=== PATIENT | female | born 1935 | race African-American/Black ===

== ENCOUNTER 2016-11-14 11:39 | Inpatient (IN) | payer OTHER, BC ==
[2016-11-14 11:53] VITALS: BMI 19.5
[2016-11-14 12:57] LABS: BASOPHIL 0.6 % (0-2.0); MCH 31.2 pg (25.7-33.7); MCHC 32.3 g/dl (32.0-36.0); MEAN CELL VOLUME 96.7 fl (80-96); MEAN PLT VOLUME 10.3 fl (7.5-11.1); NEUTROPHILS 73.1 % (42.8-82.8); PLATELET COUNT 192 K/MM3 (134-434); RDW 13.5 % (11.6-15.6); WHITE BLOOD COUNT 10.1 K/mm3 (4.0-10.0)
[2016-11-14] MEDS ORDERED: methylPREDNISolone NA SUCC 125 MG/2 ML VIAL IVPB ONE (12:58)
--- NOTE | 2016-11-14 12:58 | PDOC ---
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 She is complaint with her oxygen, as she uses it all the time. She notes that after Sarahy, she has been increasingly short of breath with an associated intermittent wet cough. She notes that after she exerts herself (walking), she gets short of breath, making her increase her home O2 to 4L, which provides some relief. She notes that she experiences pleuritic chest pain, which is relatively new since Sarahy. She went to [facility] on 11/09/2016, for evaluation of these symptoms, for which she was prescribed Z-LEANNE and steroids, for which she has completed but did not provided any relief. Patient expresses concern for possible COPD exacerbation. Allergies: Penicillin Past Surgical History: Stent placement. Social History: Former smoker. No ETOH and recreational drug use. Primary Care Physician/French Binding Folder: Dr. Raymond Perez [phone]/ [phone] <Any Park - Last Filed: 11/14/16 14:02> <Layo Queen - Last Filed: 11/14/16 14:07> - General Chief Complaint: Respiratory Stated Complaint: SOB, FLEM IN CHEST (PCP SENT) Time Seen by Provider: 11/14/16 12:00 Past History <Any Park - Last Filed: 11/14/16 14:02> - Past Medical History Anemia: No Asthma: No Cancer: No Cardiac Disorders: Yes (STENTS 05/2005) CVA: No COPD: Yes (O2 DEPENDENT) CHF: Yes Dementia: No Diabetes: Yes (IDDM) GI Disorders: No Disorders: No HTN: Yes Hypercholesterolemia: Yes Liver Disease: No Suicide Attempt (Hx): No Seizures: No Thyroid Disease: Yes (PTL THYROID REMOVED - ) - Surgical History Abdominal Surgery: No Appendectomy: No Cardiac Surgery: Yes (STENTS) Cholecystectomy: No Lung Surgery: No Neurologic Surgery: No Orthopedic Surgery: Yes (BROKEN ANKLE (CAST) NO SX) - Psycho/Social/Smoking Cessation Hx Anxiety: No (DENIES) Suicidal Ideation: No Smoking Status: No Smoking History: Never smoked Have you smoked in the past 12 months: No Number of Cigarettes Smoked Daily: 0 Hx Alcohol Use: No Drug/Substance Use Hx: No Substance Use Type: None Hx Substance Use Treatment: No <Layo Queen - Last Filed: 11/14/16 14:07> - Past Medical History Allergies/Adverse Reactions: Allergies Allergy/AdvReac Type Severity Reaction Status Date / Time Penicillins AdvReac Unknown Verified 11/14/16 11:53 Home Medications: Ambulatory Orders Albuterol 2.5/Ipratropium 0.5 [Duoneb -] 1 neb NEB Q4H 05/05/15 Aspirin [Ecotrin] 81 mg PO DAILY 05/05/15 Cholecalciferol (Vitamin D3) [D3-2000] 2,000 unit PO DAILY 05/05/15 Clopidogrel Bisulfate [Plavix -] 75 mg PO DAILY 05/05/15 Diltiazem HCl [Diltiazem ER] 180 mg PO DAILY 05/05/15 Docusate Sodium [Colace -] 100 mg PO DAILY 05/05/15 Dorzolamide HCl [Trusopt 2% -] 1 drop OD DAILY 05/05/15 Folic Acid - 1 mg PO DAILY 05/05/15 Latanoprost 0.005% Eye Drops [Xalatan 0.005% Eye Drops -] 1 drop OU HS 05/05/15 Metoprolol Succinate [Toprol Xl] 25 mg PO DAILY 05/05/15 Ranolazine [Ranexa] 500 mg PO DAILY 05/05/15 Insulin (Novolog) [Novolog Flexpen -] 0 units SQ ACHS pen 05/11/15 Furosemide [Lasix] 40 mg PO DAILY 11/14/16 Insulin Glargine,Hum.rec.anlog [Lantus (nf)] 6 units SQ HS 11/14/16 Insulin Lispro [Humalog] 6 unit SQ AC 11/14/16 Levothyroxine [Synthroid -] 75 mcg PO DAILY 11/14/16 Prednisone [Deltasone -] 20 mg PO DAILY 11/14/16 Review of Systems - Review of Systems Constitutional: No: Chills, Fever Respiratory: Yes: Cough, Shortness of Breath, Productive cough Cardiac (ROS): Yes: See HPI, Chest Pain, Edema ABD/GI: No: Nausea, Vomiting All Other Systems: Reviewed and Negative <Layo Queen - Last Filed: 11/14/16 14:07> *Physical Exam - Vital Signs Last Vital Signs Temp Pulse Resp BP Pulse Ox 98.3 F 86 24 164/72 96 11/14/16 11:49 11/14/16 12:54 11/14/16 12:54 11/14/16 11:49 11/14/16 12:54 - Physical Exam Comments: 11/14/16 13:00 GENERAL: The patient is awake, alert, and fully oriented, in no acute distress. HEAD: Normal with no signs of trauma. EYES: Pupils equal, round and reactive to light, extraocular movements intact, sclera anicteric, conjunctiva clear with no pallor. ENT: Ears normal, nares patent, oropharynx clear without exudates. Moist mucous membranes. NECK: Normal range of motion, supple without lymphadenopathy, JVD, or masses. LUNGS:+Coarse breath sounds, particularly on the left with deep inspiration. There are also decreased breath sounds at the right base and expiratory wheezes with cough. HEART: Regular rate and rhythm, normal S1 and S2 without murmur or rub. ABDOMEN: Soft/nontender/nondistended. BS wnl. No guarding or rebound. No palpable masses. No hepatosplenomegaly. EXTREMITIES: Normal range of motion. +There is 1-2 pitting edema to the lower extremities, bilaterally. No clubbing or cyanosis. No cords, erythema, or tenderness. NEUROLOGICAL: Cranial nerves II through XII grossly intact. Normal speech. Gait deferred. PSYCH: Normal mood, normal affect. SKIN: Warm, Dry, normal turgor, no rashes or lesions noted. <Any Park - Last Filed: 11/14/16 14:02> - Vital Signs Last Vital Signs Temp Pulse Resp BP Pulse Ox 98.3 F 86 24 164/72 96 11/14/16 11:49 11/14/16 12:54 11/14/16 12:54 11/14/16 11:49 11/14/16 12:54 <Layo Queen - Last Filed: 11/14/16 14:07> Heart Score/ECG Review #1 General ECG Interpretation: Sinus Rhythm (89 at bpm. Septal Q waves. Inverted T waves in the inferior leads and V6. Propbable LVH.) <Any Park - Last Filed: 11/14/16 14:02> ED Treatment Course - LABORATORY CBC & Chemistry Diagram: 11/14/16 12:40 11/14/16 12:40 - ADDITIONAL ORDERS Additional order review: 11/14/16 12:40 RBC 3.45 L MCV 96.7 H MCHC 32.3 RDW 13.5 D MPV 10.3 D Neutrophils % 73.1 D Lymphocytes % 12.4 D Monocytes % 13.9 H Eosinophils % 0.0 D Basophils % 0.6 <Any Park - Last Filed: 11/14/16 14:02> - LABORATORY CBC & Chemistry Diagram: 11/14/16 12:40 11/14/16 12:40 - RADIOLOGY Radiology Studies Ordered: Category Date Time Status CHEST X-RAY PORTABLE* [RAD] Stat Radiology 11/14/16 12:32 Ordered <Layo Queen - Last Filed: 11/14/16 14:07> Medical Decision Making - Medical Decision Making 11/14/16 13:29 Overhead page to patient's PMD and French Binding Folder, Dr. Raymond Perez. 11/14/16 14:40 Second overhead page to Dr. Raymond Perez. 11/14/16 14:03 A call was placed to Dr. Raymond Perez at his mobile phone at [phone]. Case was discussed. Accepts case. Patient will be admitted for further management, <Any Park - Last Filed: 11/14/16 14:02> - Medical Decision Making 11/14/16 14:05 A portion of this note was documented by scribe services under my direction. I have reviewed the details of the note, within reason, and agree with the documentation with the following case summary and management plan written by me. 81-year-old female with history of COPD and CHF presents with persistent and worsening dyspnea for 2-3 weeks. Seen on 11/08 at outside hospital ED and completed course of azithromycin and prednisone without relief. Vitals as noted, normalized O2 sat on her baseline 3 L. Exam as noted 81-year-old female with persistent dyspnea on exertion, COPD exacerbation versus CHF exacerbation. Labs notable for new renal insufficiency with creatinine of 2.7, elevated BNP with otherwise normal troponin Treated with nebulizers, IV steroids Accepted for inpatient med/surge by her primary physician and spraying machine operator Dr. Perez. <Layo Queen - Last Filed: 11/14/16 14:07> *DC/Admit/Observation/Transfer - Attestations Scribe Attestion: 11/14/16 13:00 Documentation prepared by Any Park, acting as medical doctor nuclear medicine for Layo Queen MD. <Any Park - Last Filed: 11/14/16 14:02> - Discharge Dispostion Admit: Yes <Layo Queen - Last Filed: 11/14/16 14:07> Diagnosis at time of Disposition: Acute renal insufficiency COPD (chronic obstructive pulmonary disease) Qualifiers: COPD type: unspecified COPD Qualified Code(s): J44.9 - Chronic obstructive pulmonary disease, unspecified Dyspnea Qualifiers: Dyspnea type: shortness of breath Qualified Code(s): R06.02 - Shortness of breath - Referrals Referrals: Raymond Perez MD [Primary Care Provider] -
[2016-11-14 13:00] LABS: ARTERIAL BLD GAS O2 SATURATION 98.6 % (90-98.9); ARTERIAL BLOOD GAS BASE EXCESS 8.9 meq/l (-2-2); ARTERIAL BLOOD GAS HCO3 35.4 meq/L (22-26); ARTERIAL BLOOD GAS pH 7.37 (7.35-7.45)
[2016-11-14 13:01] LABS: ALLENS TEST POSITIVE; ART PUNCT SITE RIGHT RADIAL; LPM/O2% 4L; PT. ON O2? YES; TYPE OF O2 NASAL
[2016-11-14] MEDS ORDERED: ALBUTEROL SO4 2.5/IPRATROPIUM 0.5 INH SOL 3 ML VIAL.NEB. NEB ONE (13:09)
[2016-11-14 13:16] LABS: ALBUMIN 3.1 g/dl (3.4-5.0); BILIRUBIN,TOTAL 0.5 mg/dL (0.2-1.0); CREATININE 2.7 mg/dL (0.55-1.02)
[2016-11-14 13:17] LABS: INR 0.99 (0.82-1.09); PROTHROMBIN TIME (PATIENT) 10.9 SEC (9.98-11.88)
[2016-11-14] MEDS: ALBUTEROL SO4 2.5/IPRATROPIUM 0.5 INH SOL 3 ML VIAL.NEB. NEB SCH ×3 (13:18→17:13)
[2016-11-14 13:19] LABS: TOT PROT 7.3 g/dl (6.4-8.2); TROPONIN I 0.04 ng/ml (0.00-0.05)
[2016-11-14] MEDS ORDERED: FUROSEMIDE 40 MG/4 ML INJECTABLE VIAL IVPUSH ONE (13:26)
[2016-11-14] MEDS ORDERED: FUROSEMIDE 40 MG/4 ML INJECTABLE VIAL ONE (13:35)
[2016-11-14] MEDS ORDERED: methylPREDNISolone NA SUCC 125 MG/2 ML VIAL ONE (13:35)
--- NOTE | 2016-11-14 14:40 | HP ---
Admitting History and Physical - Primary Care Physician PCP: Raymond Perez - Admission Chief Complaint: shortness of breath History of Present Illness: 81yo female with h/o HTN, DM, hypercholesterolemia, severe pulmonary HTN, CAD, CHF, chronic hypoxic respiratory failure on home O2 who presents with worsening shortness of breath x 3 weeks. She denies any chest pain but c/o chest tightness. She reports a cough that is nonproductive and with some wheezing. Denies any increase in her leg swelling and she sleeps on 2 pillows. She was seen at [facility] on 11/09/16 for similar symptoms, discharged from the ER with steroids and a Z-pack which did not improve her symptoms. No fevers but does feel cold. Reports compliance with her medications at home. Lives with her who has Alzheimer's. No recent travel or sick contacts. 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) - Smoking History Smoking history: Never smoked Have you smoked in the past 12 months: No Aproximately how many cigarettes per day: 0 - Alcohol/Substance Use Hx Alcohol Use: No - Social History History of Recent Travel: No Home Medications - Allergies Allergies/Adverse Reactions: Allergies Allergy/AdvReac Type Severity Reaction Status Date / Time Penicillins AdvReac Unknown Verified 11/14/16 11:53 - Home Medications Home Medications: Ambulatory Orders Albuterol 2.5/Ipratropium 0.5 [Duoneb -] 1 neb NEB Q4H 05/05/15 Aspirin [Ecotrin] 81 mg PO DAILY 05/05/15 Cholecalciferol (Vitamin D3) [D3-2000] 2,000 unit PO DAILY 05/05/15 Clopidogrel Bisulfate [Plavix -] 75 mg PO DAILY 05/05/15 Diltiazem HCl [Diltiazem ER] 180 mg PO DAILY 05/05/15 Docusate Sodium [Colace -] 100 mg PO DAILY 05/05/15 Dorzolamide HCl [Trusopt 2% -] 1 drop OD DAILY 05/05/15 Folic Acid - 1 mg PO DAILY 05/05/15 Latanoprost 0.005% Eye Drops [Xalatan 0.005% Eye Drops -] 1 drop OU HS 05/05/15 Metoprolol Succinate [Toprol Xl] 25 mg PO DAILY 05/05/15 Ranolazine [Ranexa] 500 mg PO DAILY 05/05/15 Insulin (Novolog) [Novolog Flexpen -] 0 units SQ ACHS pen 05/11/15 Furosemide [Lasix] 40 mg PO DAILY 11/14/16 Insulin Glargine,Hum.rec.anlog [Lantus (nf)] 6 units SQ HS 11/14/16 Insulin Lispro [Humalog] 6 unit SQ AC 11/14/16 Levothyroxine [Synthroid -] 75 mcg PO DAILY 11/14/16 Prednisone [Deltasone -] 20 mg PO DAILY 11/14/16 Family Disease History - Family Disease History Other Family History: non-contributory Review of Systems - Review of Systems Constitutional: reports: Weakness. denies: Chills, Fever Eyes: denies: Recent Change in Vision HENT: denies: Nasal Congestion, Throat Pain Neck: denies: Stiffness, Tenderness Cardiovascular: reports: Edema, Shortness of Breath. denies: Chest Pain, Palpitations Respiratory: reports: Cough, Exercise Intolerance, SOB, SOB on Exertion. denies : Hemoptysis, Wheezing Gastrointestinal: denies: Abdominal Pain, Nausea, Vomiting Genitourinary: denies: Dysuria, Hematuria Neurological: denies: Dizziness, Headache Physical Examination Vital Signs: Vital Signs Temperature 98.3 F 11/14/16 11:49 Pulse Rate 90 11/14/16 14:34 Respiratory Rate 24 11/14/16 14:34 Blood Pressure 158/80 11/14/16 14:34 O2 Sat by Pulse Oximetry (%) 100 11/14/16 14:34 Constitutional: Yes: Mild Distress Eyes: Yes: Conjunctiva Clear, EOM Intact HENT: Yes: Atraumatic, Normocephalic Neck: Yes: Supple, Trachea Midline Cardiovascular: Yes: Regular Rate and Rhythm Respiratory: Yes: Rhonchi (basilar) Gastrointestinal: Yes: Normal Bowel Sounds, Soft. No: Tenderness Edema: Yes Labs: CBC, BMP 11/14/16 12:40 11/14/16 12:40 Imaging - Results Chest X-ray: Image Reviewed (hyperinflated, small bibasilar effusions, possible LLL infiltrate vs atelectasis) Problem List - Problems (1) Acute on chronic diastolic (congestive) heart failure Code(s): I50.33 - ACUTE ON CHRONIC DIASTOLIC (CONGESTIVE) HEART FAILURE (2) Pulmonary hypertension Code(s): I27.2 - OTHER SECONDARY PULMONARY HYPERTENSION (3) COPD (chronic obstructive pulmonary disease) Code(s): J44.9 - CHRONIC OBSTRUCTIVE PULMONARY DISEASE, UNSPECIFIED Qualifiers : COPD type: unspecified COPD Qualified Code(s): J44.9 - Chronic obstructive pulmonary disease, unspecified (4) Acute kidney injury Code(s): N17.9 - ACUTE KIDNEY FAILURE, UNSPECIFIED (5) Chronic respiratory failure with hypoxia Code(s): J96.11 - CHRONIC RESPIRATORY FAILURE WITH HYPOXIA (6) CAD (coronary artery disease) Code(s): I25.10 - ATHSCL HEART DISEASE OF [place] CORONARY ARTERY W/O ANG PCTRS (7) Diabetes mellitus, insulin dependent (IDDM), uncontrolled Code(s): E10.65 - TYPE 1 DIABETES MELLITUS WITH HYPERGLYCEMIA (8) HTN (hypertension) Code(s): I10 - ESSENTIAL (PRIMARY) HYPERTENSION Qualifiers: Hypertension type: essential hypertension Qualified Code(s): I10 - Essential (primary) hypertension (9) Hypercholesteremia Code(s): E78.0 - PURE HYPERCHOLESTEROLEMIA * DO NOT USE * (10) Chronic respiratory failure with hypercapnia Code(s): J96.12 - CHRONIC RESPIRATORY FAILURE WITH HYPERCAPNIA Assessment/Plan Acute on Chronic LV Diastolic Heart Failure Pulmonary HTN COPD - ?Exacerbation Chronic Hypoxic and Hypercapneic Respiratory Failure CAD HTN DM Hypercholesterolemia - IV lasix - monitor urine output, creatinine - daily weights, I/Os - echocardiogram - O2 to keep SpO2 >90% - empiric medrol x 48 hrs then reassess need to continue - inhaled bronchodilators - urine lytes, urine creatinine - glucose control while on systemic steroids - cardiology, renal consults - DVT prophylaxis
[2016-11-14] MEDS ORDERED: ACETAMINOPHEN 325 MG TABLET (FP) PO PRN (14:49)
[2016-11-14] MEDS ORDERED: ALBUTEROL SO4 2.5/IPRATROPIUM 0.5 INH SOL 3 ML VIAL.NEB. NEB SCH ×2 (15:00)
[2016-11-14] MEDS: INSULIN SLIDING SCALE (NOVOLOG) 1 VIAL SQ SCH ×2 (18:02→21:52)
[2016-11-14] MEDS: methylPREDNISolone NA SUCC 40 MG/1 ML VIAL IVPB SCH (18:03)
[2016-11-14] MEDS ORDERED: INSULIN (NOVOLOG) ASPART 100 UNITS/ML 10ML VIAL ONE (20:48)
[2016-11-14] MEDS: HEPARIN NA (PORCINE) 5,000 UNITS/ML 1ML VIAL SQ SCH (21:57)
[2016-11-14] MEDS: LATANOPROST 0.005% OPHTH SOLN 2.5ML BOTTLE OU SCH (21:57)
--- NOTE | 2016-11-14 23:53 | EKG ---
Test Reason : Blood Pressure : / mmHG Vent. Rate : 089 BPM Atrial Rate : 089 BPM P-R Int : 156 ms QRS Dur : 080 ms QT Int : 376 ms P-R-T Axes : 075 -03 -23 degrees QTc Int : 457 ms NORMAL SINUS RHYTHM ANTEROSEPTAL INFARCT (CITED ON OR BEFORE 06-MAY-2015) ABNORMAL ECG WHEN COMPARED WITH ECG OF 06-MAY-2015 01:23, QUESTIONABLE CHANGE IN INITIAL FORCES OF SEPTAL LEADS T WAVE INVERSION NOW EVIDENT IN INFERIOR LEADS Confirmed by ALESIA NIX MD ([id number]) on 11/14/2016 11:53:30 PM Referred By: Confirmed By:ALESIA NIX MD
[2016-11-15] MEDS: ALBUTEROL SO4 2.5/IPRATROPIUM 0.5 INH SOL 3 ML VIAL.NEB. NEB SCH ×4 (00:13→19:31)
[2016-11-15] MEDS: methylPREDNISolone NA SUCC 40 MG/1 ML VIAL IVPB SCH ×3 (01:34→18:39)
[2016-11-15] MEDS: INSULIN SLIDING SCALE (NOVOLOG) 1 VIAL SQ SCH ×4 (06:16→21:51)
[2016-11-15] MEDS: LEVOTHYROXINE NA 75 MCG TABLET (FP) PO SCH (06:22)
[2016-11-15 07:27] LABS: BASOPHIL 0.1 % (0-2.0); MCH 31.8 pg (25.7-33.7); MCHC 32.6 g/dl (32.0-36.0); MEAN CELL VOLUME 97.5 fl (80-96); PLATELET COUNT 170 K/MM3 (134-434); RDW 14.2 % (11.6-15.6); WHITE BLOOD COUNT 6.9 K/mm3 (4.0-10.0)
[2016-11-15 09:11] LABS: ALBUMIN 2.7 g/dl (3.4-5.0); BILIRUBIN,TOTAL 0.5 mg/dL (0.2-1.0); CALCIUM 8.6 mg/dL (8.5-10.1); CREATININE 2.7 mg/dL (0.55-1.02); MAGNESIUM 2.5 mg/dL (1.8-2.4); PHOSPHOROUS 4.1 mg/dL (2.5-4.9); THYROID STIMULATING HORMONE 0.7 uIU/ml (0.358-3.74); TOT PROT 6.5 g/dl (6.4-8.2)
[2016-11-15] MEDS ORDERED: PT OWN MED DRAWER 7, Y5N ONE (10:09)
[2016-11-15] MEDS: FUROSEMIDE 40 MG/4 ML INJECTABLE VIAL IVPUSH SCH (10:47)
[2016-11-15] MEDS: DOCUSATE SODIUM 100 MG CAPSULE (FP) PO SCH (10:53)
[2016-11-15] MEDS: FOLIC ACID 1 MG TABLET (FP) PO SCH (10:54)
[2016-11-15] MEDS: RANOLAZINE E.R. 500 MG TABLET (FP) PO SCH (10:54)
[2016-11-15] MEDS: CLOPIDOGREL BISULFATE 75 MG TABLET (FP) PO SCH (10:54)
[2016-11-15] MEDS: ASPIRIN COATED 81 MG TABLET.EC PO SCH (10:54)
[2016-11-15] MEDS: METOPROLOL SUCCINATE 25 MG TAB.SR.24H (FP) PO SCH (10:55)
[2016-11-15] MEDS: HEPARIN NA (PORCINE) 5,000 UNITS/ML 1ML VIAL SQ SCH ×2 (10:55→21:51)
[2016-11-15] MEDS: DORZOLAMIDE 2% HCL OPHTHALMIC SOLUTION 10 ML BOTTLE OD SCH (10:56)
--- NOTE | 2016-11-15 11:06 | PN ---
Progress Note (short form) - Note Progress Note: PULMONARY/MED Breathing about the same. Feels weak and tired. Last Vital Signs Temp Pulse Resp BP Pulse Ox 98.1 F 88 20 148/82 100 11/15/16 05:00 11/15/16 05:00 11/15/16 05:00 11/15/16 05:00 11/14/16 21:00 Gen: NAD at rest Heart: RRR Lung: scattered rhonchi Abd: soft, nontender Ext: distal edema CBC, BMP 11/15/16 06:00 11/15/16 06:00 Active Medications Acetaminophen (Tylenol -) 650 mg PO Q4H PRN PRN Reason: FEVER OR PAIN Albuterol/Ipratropium (Duoneb -) 1 amp NEB QIDR [facility] Last Admin: 11/15/16 07:14 Dose: 1 amp Aspirin (Ecotrin -) 81 mg PO DAILY [facility] Clopidogrel Bisulfate (Plavix -) 75 mg PO DAILY [facility] Diltiazem HCl (Cardizem Cd -) 180 mg PO DAILY [facility] Docusate Sodium (Colace -) 100 mg PO DAILY [facility] Dorzolamide HCl (Trusopt 2%) 1 drop OD DAILY [facility] Folic Acid (Folic Acid -) 1 mg PO DAILY [facility] Furosemide (Lasix Injection -) 60 mg IVPUSH DAILY [facility] Heparin Sodium (Porcine) (Heparin -) 5,000 unit SQ BID [facility] Last Admin: 11/14/16 21:57 Dose: 5,000 unit Insulin Aspart (Novolog Vial Sliding Scale -) 1 vial SQ ACHS [facility] PRN Reason: Protocol Last Admin: 11/15/16 06:16 Dose: Not Given Latanoprost (Xalatan 0.005% Eye Drops -) 1 drop OU HS [facility] Last Admin: 11/14/16 21:57 Dose: 1 drop Levothyroxine Sodium (Synthroid -) 75 mcg PO DAILY@0700 [facility] Last Admin: 11/15/16 06:22 Dose: 75 mcg Methylprednisolone Sodium Succinate (Solu-Medrol -) 40 mg IVPB Q8H-IV [facility] Last Admin: 11/15/16 01:34 Dose: 40 mg Metoprolol Succinate (Toprol Xl -) 25 mg PO DAILY [facility] Ranolazine (Ranexa -) 500 mg PO DAILY [facility] A/P Acute on Chronic LV Diastolic Heart Failure Pulmonary HTN COPD - ?Exacerbation Chronic Hypoxic and Hypercapneic Respiratory Failure CAD HTN DM Hypercholesterolemia - IV lasix - monitor urine output, creatinine - daily weights, I/Os - echocardiogram - O2 to keep SpO2 >90% - empiric medrol x 48 hrs then reassess need to continue - inhaled bronchodilators - urine lytes, urine creatinine - glucose control while on systemic steroids - cardiology, renal consults - DVT prophylaxis Problem List - Problems (1) Acute on chronic diastolic (congestive) heart failure Code(s): I50.33 - ACUTE ON CHRONIC DIASTOLIC (CONGESTIVE) HEART FAILURE (2) Pulmonary hypertension Code(s): I27.2 - OTHER SECONDARY PULMONARY HYPERTENSION (3) COPD (chronic obstructive pulmonary disease) Code(s): J44.9 - CHRONIC OBSTRUCTIVE PULMONARY DISEASE, UNSPECIFIED Qualifiers : COPD type: unspecified COPD Qualified Code(s): J44.9 - Chronic obstructive pulmonary disease, unspecified (4) Acute kidney injury Code(s): N17.9 - ACUTE KIDNEY FAILURE, UNSPECIFIED (5) Chronic respiratory failure with hypoxia Code(s): J96.11 - CHRONIC RESPIRATORY FAILURE WITH HYPOXIA (6) CAD (coronary artery disease) Code(s): I25.10 - ATHSCL HEART DISEASE OF [place] CORONARY ARTERY W/O ANG PCTRS (7) Diabetes mellitus, insulin dependent (IDDM), uncontrolled Code(s): E10.65 - TYPE 1 DIABETES MELLITUS WITH HYPERGLYCEMIA (8) HTN (hypertension) Code(s): I10 - ESSENTIAL (PRIMARY) HYPERTENSION Qualifiers: Hypertension type: essential hypertension Qualified Code(s): I10 - Essential (primary) hypertension (9) Hypercholesteremia Code(s): E78.0 - PURE HYPERCHOLESTEROLEMIA * DO NOT USE * (10) Chronic respiratory failure with hypercapnia Code(s): J96.12 - CHRONIC RESPIRATORY FAILURE WITH HYPERCAPNIA
[2016-11-15 11:44] LABS: URINE APPEARANCE SLCLOUDY; URINE BILIRUBIN NEGATIVE (NEGATIVE); URINE BLOOD 3+ (NEGATIVE); URINE COLOR YELLOW; URINE GLUCOSE (UA) 1+ (NEGATIVE); URINE KETONE NEGATIVE (NEGATIVE); URINE LEUK ESTERASE 3+ (NEGATIVE); URINE NITRITE NEGATIVE (NEGATIVE); URINE PROTEIN 2+ (NEGATIVE); URINE UROBILINOGEN NEGATIVE E.U./dl (0.2-1.0)
[2016-11-15 11:48] LABS: URINE BACTERIA MANY /hpf (NONE SEEN); URINE MUCUS RARE; URINE RBC 14 /hpf (0-3); URINE WBC 61 /hpf (3-5); YEAST RARE
[2016-11-15 12:04] LABS: URINE CREATININE 72.4 mg/dL
[2016-11-15] MEDS ORDERED: INSULIN (NOVOLOG) ASPART 100 UNITS/ML 10ML VIAL ONE (12:35)
[2016-11-15 13:30] LABS: TROPONIN I 0.08 ng/ml (0.00-0.05)
--- NOTE | 2016-11-15 14:10 | CONSULT ---
Consult - text type - Consultation Consultation Note: Renal Consult for TACOS This is a 81 year old woman with PMhx of DM, Hyperlipidemia, COPD on home O2, CAD, CHF, Pulmonary hypertension who presented with SOB and found to have BUN/ Cr of 80/2.7. Pt was seen by our service on previous admissions for [facility]OS. Pt denies any history of CKD. Pt denies any NSAID use or recent IV contrast exposure. s/p recent oral abx for COPD exacerbation at [facility] but denies any skin rash. Denies any difficulty with voiding. Denies any flank pain. No chest pain, fever or chills. Pt started on IV steroids and IV lasix for suspected CHF. PMhx: as above AllergieS: NKDA Family Hx: NC Social hx: Former smoker ROS: As per HPI, all other pertinent ros negative Home Meds: Medication Instructions Recorded Albuterol 2.5/Ipratropium 0.5 1 neb NEB Q4H 05/05/15 [Duoneb -] Aspirin [Ecotrin] 81 mg PO DAILY 05/05/15 Clopidogrel Bisulfate [Plavix -] 75 mg PO DAILY 05/05/15 Diltiazem HCl [Diltiazem ER] 180 mg PO DAILY 05/05/15 Dorzolamide HCl [Trusopt 2% -] 1 drop OD DAILY 05/05/15 Folic Acid - 1 mg PO DAILY 05/05/15 Latanoprost 0.005% Eye Drops 1 drop OU HS 05/05/15 [Xalatan 0.005% Eye Drops -] Metoprolol Succinate [Toprol Xl] 25 mg PO DAILY 05/05/15 Ranolazine [Ranexa] 500 mg PO DAILY 05/05/15 Insulin (Novolog) [Novolog Flexpen 0 units SQ ACHS pen 05/11/15 -] Furosemide [Lasix] 40 mg PO DAILY 11/14/16 Insulin Glargine,Hum.rec.anlog 5 units SQ HS 11/14/16 [Lantus (nf)] Insulin Lispro [Humalog] 6 unit SQ AC 11/14/16 Levothyroxine [Synthroid -] 75 mcg PO DAILY 11/14/16 Vital Signs Temperature 98.1 F 11/15/16 05:00 Pulse Rate 88 11/15/16 05:00 Respiratory Rate 20 11/15/16 05:00 Blood Pressure 148/82 11/15/16 05:00 O2 Sat by Pulse Oximetry (%) 100 11/14/16 21:00 Intake & Output 11/12/16 11/13/16 11/14/16 11/15/16 23:59 23:59 23:59 23:59 Intake Total 50 150 Balance 50 150 Weight 100 lb 95 lb 8 oz Gen: NAD, awake and alert HEENT: NC/AT, Dry MM, No JVD CVS: RRR, No M/R Lungs: + rales LLL. No wheeze Abd: soft NT/ND Ext: trace to 1+ edema in B/L LE. No clubbing or cyanosis : No bladder distension Neuro: AAOX3, no focal defects CBC, BMP 11/15/16 06:00 11/15/16 06:00 Laboratory Tests 12/23/14 12/23/14 12/23/14 07:40 14:00 14:00 Calcium 8.7 Phosphorus Magnesium Albumin 3.0 L Ur Specific [place] Urine Protein Urine Glucose (UA) Urine Blood U Random Total Protein 38 H Ur Random Sodium Ur Random Potassium Ur Random Chloride Urine Creatinine 15.3 12/23/14 12/23/14 11/15/16 14:00 14:00 06:00 Calcium 8.6 Phosphorus 4.1 Magnesium 2.5 H D Albumin 2.7 L Ur Specific [place] 1.007 Urine Protein 1+ H Urine Glucose (UA) 3+ H Urine Blood 2+ H U Random Total Protein Ur Random Sodium 62 Ur Random Potassium 19.5 Ur Random Chloride 86 Urine Creatinine A/P 81 year old woman with PMhx of DM, Hyperlipidemia, COPD on home O2, CAD, CHF, Pulmonary hypertension who presented with SOB and found to have BUN/Cr of 80/ 2.7. #Acute Renal Failure UA with 2+ protein, FeNa was < 1% indicating decreased renal profusion with preserved tubular function Given high BNP, Rales and LE edema would continue IV diuresis for now Renal US w/o any obstruction, stone seen in bladder -? passed urethral stone Trend BUN/Cr, electrolytes Dose all meds for Cr Cl less then 15 for now avoid ACEi/ARB, nsaids no indication for GEOTECHNICIAN #Acute SOB/CHF/COPD ECHO showed decreased LVEF Continue IV lasix as per primary on IV steroids #DM Check UPCR r/o diabetic nephropathy/proteinuria given echogenic appearance of the kidneys Check Hgb A1C Thank you Will continue to follow Brandon Hampton DO
--- NOTE | 2016-11-15 15:54 | CONSULT ---
Consult Consult Specialty:: Cardiology Referred by:: Raymond Perez MD Reason for Consultation:: Dyspnea, chest tightness - History of Present Illness Chief Complaint: Dyspnea, chest tightness History of Present Illness: 81yo female with h/o HTN, DM, hypercholesterolemia, diastolic dysfunction with pulmonary HTN, CAD s/p multivessel PCI (stent), angina pectoris, chronic hypoxic respiratory failure (COPD) on home O2, CKD who presented with worsening shortness of breath and chest tightness last 3 weeks. She reports a cough that is nonproductive and with some wheezing. She denies any increase in her leg swelling and she sleeps on stable 2 pillows. She was seen at [facility] on 11/09/16 for similar symptoms, discharged from the ER with steroids and a Z- pack which did not improve her symptoms. She reports compliance with her medications denies near or true syncope, palpitations, PND. 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) - Alcohol/Substance Use Hx Alcohol Use: No - Smoking History Smoking history: Never smoked Have you smoked in the past 12 months: No Aproximately how many cigarettes per day: 0 - Social History History of Recent Travel: No Home Medications - Allergies Allergies/Adverse Reactions: Allergies Allergy/AdvReac Type Severity Reaction Status Date / Time Penicillins AdvReac Unknown Verified 11/14/16 11:53 - Home Medications Home Medications: Ambulatory Orders Albuterol 2.5/Ipratropium 0.5 [Duoneb -] 1 neb NEB Q4H 05/05/15 Aspirin [Ecotrin] 81 mg PO DAILY 05/05/15 Clopidogrel Bisulfate [Plavix -] 75 mg PO DAILY 05/05/15 Diltiazem HCl [Diltiazem ER] 180 mg PO DAILY 05/05/15 Dorzolamide HCl [Trusopt 2% -] 1 drop OD DAILY 05/05/15 Folic Acid - 1 mg PO DAILY 05/05/15 Latanoprost 0.005% Eye Drops [Xalatan 0.005% Eye Drops -] 1 drop OU HS 05/05/15 Metoprolol Succinate [Toprol Xl] 25 mg PO DAILY 05/05/15 Ranolazine [Ranexa] 500 mg PO DAILY 05/05/15 Insulin (Novolog) [Novolog Flexpen -] 0 units SQ ACHS pen 05/11/15 Furosemide [Lasix] 40 mg PO DAILY 11/14/16 Insulin Glargine,Hum.rec.anlog [Lantus (nf)] 5 units SQ HS 11/14/16 Insulin Lispro [Humalog] 6 unit SQ AC 11/14/16 Levothyroxine [Synthroid -] 75 mcg PO DAILY 11/14/16 Family Disease History - Family Disease History Other Family History: non-contributory Review of Systems - Review of Systems Respiratory: reports: Cough, SOB on Exertion, Wheezing Vital Signs: Vital Signs Temperature 98.5 F 11/15/16 14:39 Pulse Rate 88 11/15/16 14:39 Respiratory Rate 20 11/15/16 14:39 Blood Pressure 126/74 11/15/16 14:39 O2 Sat by Pulse Oximetry (%) 100 11/14/16 21:00 Constitutional: Yes: No Distress, Calm, Thin Neck: Yes: Supple Respiratory: Yes: Regular, Diminished, On Nasal O2 Gastrointestinal: Yes: Normal Bowel Sounds, Soft Cardiovascular: Yes: Regular Rate and Rhythm JVD: No Carotid Bruit: No Heart Sounds: Yes: S1, S2 Murmur: Yes: Systolic Murmur, Grade 2 Edema: No - Other Data Labs, Other Data: CBC, BMP 11/15/16 06:00 11/15/16 06:00 INR, PTT INR 0.99 (0.82-1.09) 11/14/16 12:40 Troponin, BNP 11/15/16 11/15/16 06:00 06:00 Troponin I Cancelled 0.08 H Troponin, BNP 11/15/16 11/15/16 06:00 06:00 Troponin I Cancelled 0.08 H NSR @ 89 PRWP Prior Cardiac Procedures: PTCA with Stent Ejection Fraction %: LVEF > or = 40 % Imaging - Results Chest X-ray: Report Reviewed (Left base infiltrate and effusion) Problem List - Problems (1) Acute kidney injury Code(s): N17.9 - ACUTE KIDNEY FAILURE, UNSPECIFIED (2) Acute on chronic diastolic (congestive) heart failure Code(s): I50.33 - ACUTE ON CHRONIC DIASTOLIC (CONGESTIVE) HEART FAILURE (3) COPD (chronic obstructive pulmonary disease) Code(s): J44.9 - CHRONIC OBSTRUCTIVE PULMONARY DISEASE, UNSPECIFIED Qualifiers : COPD type: unspecified COPD Qualified Code(s): J44.9 - Chronic obstructive pulmonary disease, unspecified (4) Chronic respiratory failure with hypoxia Code(s): J96.11 - CHRONIC RESPIRATORY FAILURE WITH HYPOXIA (5) Dyspnea Code(s): R06.00 - DYSPNEA, UNSPECIFIED Qualifiers: Dyspnea type: shortness of breath Qualified Code(s): R06.02 - Shortness of breath (6) Hypercholesteremia Code(s): E78.0 - PURE HYPERCHOLESTEROLEMIA * DO NOT USE * (7) Pulmonary hypertension Code(s): I27.2 - OTHER SECONDARY PULMONARY HYPERTENSION (8) Anemia Code(s): D64.9 - ANEMIA, UNSPECIFIED Qualifiers: Anemia 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 transplanted heart: [place] heart Associated angina: without angina Qualified Code(s): I25.10 - Atherosclerotic heart disease of [place] coronary artery without angina pectoris (10) COPD exacerbation Code(s): J44.1 - CHRONIC OBSTRUCTIVE PULMONARY DISEASE W (ACUTE) EXACERBATION (11) Diabetes mellitus, insulin dependent (IDDM), uncontrolled Code(s): E10.65 - TYPE 1 DIABETES MELLITUS WITH HYPERGLYCEMIA Qualifiers: Diabetes mellitus complication status: with kidney complications Diabetes mellitus complication detail: with nephropathy Qualified Code(s) : E10.29 - Type 1 diabetes mellitus with other diabetic kidney complication; E10.65 - Type 1 diabetes mellitus with hyperglycemia (12) HTN (hypertension) Code(s): I10 - ESSENTIAL (PRIMARY) HYPERTENSION Qualifiers: Hypertension type: essential hypertension Qualified Code(s): I10 - Essential (primary) hypertension (13) Demand ischemia Code(s): I24.8 - OTHER FORMS OF ACUTE ISCHEMIC HEART DISEASE Assessment/Plan 11/15/2016 Echo: Normal RV size and fxn, mild-mod decreased LV fxn, mild LAE, RVSP 50-60 mmHg, mod TR, mild AR, Tr DC 1. Acute on Chronic LV Diastolic Heart Failure with severe pulmonary HTN 2. Home-O2 dependent COPD - ?Exacerbation 3. Chronic Hypoxic and Hypercapneic Respiratory Failure 4. CAD s/p multivessel PCI (stent), demand ischemia 5. Acute on CKD 6. HTN/HCVD 7. DM 8. Hypercholesterolemia 9. Hypothyroidism P:1. IV lasix with monitor diuretic response, renal fxn and electrolytes, cycle trops to document peak 2. Continue ASA 81 qd, Plavix 75 qd, Cardizem CD 180 qd, Toprol XL 25 qd, Ranexa 500 qd. Agree with holding Aldactone and losartan pending renal recovery. 3. O2 to keep SpO2 >90%, IV steroids, inhaled bronchodilators 4. DVT and GI prophylaxis 5. Thank you for consultative opportunity
[2016-11-15 18:48] LABS: URINE APPEARANCE SLCLOUDY; URINE BILIRUBIN NEGATIVE (NEGATIVE); URINE COLOR YELLOW; URINE GLUCOSE (UA) 1+ (NEGATIVE); URINE KETONE NEGATIVE (NEGATIVE); URINE NITRITE NEGATIVE (NEGATIVE); URINE UROBILINOGEN NEGATIVE E.U./dl (0.2-1.0)
[2016-11-15 18:50] LABS: URINE BLOOD 3+ (NEGATIVE); URINE LEUK ESTERASE 3+ (NEGATIVE); URINE PROTEIN 1+ (NEGATIVE)
[2016-11-15 18:51] LABS: URINE BACTERIA FEW /hpf (NONE SEEN); URINE HYALINE CAST 3 /lpf; URINE MUCUS RARE; URINE RBC 26 /hpf (0-3); URINE WBC 76 /hpf (3-5)
[2016-11-15] MEDS: LATANOPROST 0.005% OPHTH SOLN 2.5ML BOTTLE OU SCH (21:51)
[2016-11-15 22:52] LABS: URINE CREATININE 24.5 mg/dL
[2016-11-16] MEDS: ALBUTEROL SO4 2.5/IPRATROPIUM 0.5 INH SOL 3 ML VIAL.NEB. NEB SCH ×4 (00:25→18:51)
[2016-11-16] MEDS: methylPREDNISolone NA SUCC 40 MG/1 ML VIAL IVPB SCH ×3 (01:36→17:30)
[2016-11-16] MEDS: INSULIN SLIDING SCALE (NOVOLOG) 1 VIAL SQ SCH ×4 (06:27→22:48)
[2016-11-16] MEDS: LEVOTHYROXINE NA 75 MCG TABLET (FP) PO SCH (06:30)
[2016-11-16 07:57] LABS: CALCIUM 9.1 mg/dL (8.5-10.1); CREATININE 2.6 mg/dL (0.55-1.02)
[2016-11-16 07:58] LABS: TROPONIN I 0.28 ng/ml (0.00-0.05)
[2016-11-16] MEDS: HEPARIN NA (PORCINE) 5,000 UNITS/ML 1ML VIAL SQ SCH ×2 (10:33→22:49)
[2016-11-16] MEDS: ASPIRIN COATED 81 MG TABLET.EC PO SCH (10:35)
[2016-11-16] MEDS: RANOLAZINE E.R. 500 MG TABLET (FP) PO SCH (10:35)
[2016-11-16] MEDS: METOPROLOL SUCCINATE 25 MG TAB.SR.24H (FP) PO SCH (10:35)
[2016-11-16] MEDS: FUROSEMIDE 40 MG/4 ML INJECTABLE VIAL IVPUSH SCH (10:35)
[2016-11-16] MEDS: CLOPIDOGREL BISULFATE 75 MG TABLET (FP) PO SCH (10:35)
[2016-11-16] MEDS: DOCUSATE SODIUM 100 MG CAPSULE (FP) PO SCH (10:35)
[2016-11-16] MEDS: FOLIC ACID 1 MG TABLET (FP) PO SCH (10:35)
[2016-11-16] MEDS: DORZOLAMIDE 2% HCL OPHTHALMIC SOLUTION 10 ML BOTTLE OD SCH (10:36)
--- NOTE | 2016-11-16 14:57 | PN ---
Progress Note (short form) - Note Progress Note: PULMONARY MILD SUBJECTIVE IMPROVEMENT VSS/AFEBRILE ANICTERIC DISTANT B/L BREATH SOUNDS S1S2 IRREGULAR BS+ DIMINISHED B/L LOWER EXT EDEMA LABS/MEDS/IMAGING/NOTES REVIEWED Acute on Chronic LV Diastolic Heart Failure Pulmonary HTN COPD Chronic Hypoxic and Hypercapneic Respiratory Failure CAD HTN DM Hypercholesterolemia - IV lasix - monitor urine output, creatinine - daily weights, I/Os - echocardiogram - O2 to keep SpO2 >90% - reduce steroids - inhaled bronchodilators - urine lytes, urine creatinine - glucose control while on systemic steroids - cardiology, renal consults - DVT prophylaxis Corazon PERDOMO MD
--- NOTE | 2016-11-16 15:45 | PN ---
Progress Note, Physician History of Present Illness: Dyspnea and chest tightness improved with diuresis. - Current Medication List Current Medications: Active Medications Acetaminophen (Tylenol -) 650 mg PO Q4H PRN PRN Reason: FEVER OR PAIN Albuterol/Ipratropium (Duoneb -) 1 amp NEB QIDR [facility] Last Admin: 11/16/16 12:18 Dose: 1 amp Aspirin (Ecotrin -) 81 mg PO DAILY [facility] Last Admin: 11/16/16 10:35 Dose: 81 mg Clopidogrel Bisulfate (Plavix -) 75 mg PO DAILY [facility] Last Admin: 11/16/16 10:35 Dose: 75 mg Diltiazem HCl (Cardizem Cd -) 180 mg PO DAILY [facility] Last Admin: 11/16/16 10:35 Dose: 180 mg Docusate Sodium (Colace -) 100 mg PO DAILY [facility] Last Admin: 11/16/16 10:35 Dose: 100 mg Dorzolamide HCl (Trusopt 2%) 1 drop OD DAILY [facility] Last Admin: 11/16/16 10:36 Dose: 1 drop Folic Acid (Folic Acid -) 1 mg PO DAILY [facility] Last Admin: 11/16/16 10:35 Dose: 1 mg Furosemide (Lasix Injection -) 60 mg IVPUSH DAILY [facility] Last Admin: 11/16/16 10:35 Dose: 60 mg Heparin Sodium (Porcine) (Heparin -) 5,000 unit SQ BID [facility] Last Admin: 11/16/16 10:33 Dose: 5,000 unit Insulin Aspart (Novolog Vial Sliding Scale -) 1 vial SQ ACHS [facility] PRN Reason: Protocol Last Admin: 11/16/16 11:30 Dose: 6 unit Latanoprost (Xalatan 0.005% Eye Drops -) 1 drop OU HS [facility] Last Admin: 11/15/16 21:51 Dose: 1 drop Levothyroxine Sodium (Synthroid -) 75 mcg PO DAILY@0700 [facility] Last Admin: 11/16/16 06:30 Dose: 75 mcg Methylprednisolone Sodium Succinate (Solu-Medrol -) 20 mg IVPB Q8H-IV [facility] Metoprolol Succinate (Toprol Xl -) 25 mg PO DAILY [facility] Last Admin: 11/16/16 10:35 Dose: 25 mg Ranolazine (Ranexa -) 500 mg PO DAILY [facility] Last Admin: 11/16/16 10:35 Dose: 500 mg - Objective Vital Signs: Vital Signs Temperature 98.5 F 11/16/16 15:04 Pulse Rate 83 11/16/16 15:04 Respiratory Rate 20 11/16/16 15:04 Blood Pressure 124/70 11/16/16 15:04 O2 Sat by Pulse Oximetry (%) 97 11/16/16 12:18 Constitutional: Yes: No Distress, Calm, Thin Neck: Yes: Supple Cardiovascular: Yes: Regular Rate and Rhythm Respiratory: Yes: Regular, Diminished, On Nasal O2 Gastrointestinal: Yes: Normal Bowel Sounds, Soft Edema: No Labs: CBC, BMP 11/15/16 06:00 11/16/16 06:15 INR, PTT INR 0.99 (0.82-1.09) 11/14/16 12:40 Problem List - Problems (1) Acute kidney injury Code(s): N17.9 - ACUTE KIDNEY FAILURE, UNSPECIFIED (2) Acute on chronic diastolic (congestive) heart failure Code(s): I50.33 - ACUTE ON CHRONIC DIASTOLIC (CONGESTIVE) HEART FAILURE (3) COPD (chronic obstructive pulmonary disease) Code(s): J44.9 - CHRONIC OBSTRUCTIVE PULMONARY DISEASE, UNSPECIFIED Qualifiers : COPD type: unspecified COPD Qualified Code(s): J44.9 - Chronic obstructive pulmonary disease, unspecified (4) Chronic respiratory failure with hypoxia Code(s): J96.11 - CHRONIC RESPIRATORY FAILURE WITH HYPOXIA (5) Dyspnea Code(s): R06.00 - DYSPNEA, UNSPECIFIED Qualifiers: Dyspnea type: shortness of breath Qualified Code(s): R06.02 - Shortness of breath (6) Hypercholesteremia Code(s): E78.0 - PURE HYPERCHOLESTEROLEMIA * DO NOT USE * (7) Pulmonary hypertension Code(s): I27.2 - OTHER SECONDARY PULMONARY HYPERTENSION (8) Anemia Code(s): D64.9 - ANEMIA, UNSPECIFIED Qualifiers: 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 transplanted heart: [place] heart Associated angina: without angina Qualified Code(s): I25.10 - Atherosclerotic heart disease of [place] coronary artery without angina pectoris (10) COPD exacerbation Code(s): J44.1 - CHRONIC OBSTRUCTIVE PULMONARY DISEASE W (ACUTE) EXACERBATION (11) Diabetes mellitus, insulin dependent (IDDM), uncontrolled Code(s): E10.65 - TYPE 1 DIABETES MELLITUS WITH HYPERGLYCEMIA Qualifiers: Diabetes mellitus complication status: with kidney complications Diabetes mellitus complication detail: with nephropathy Qualified Code(s) : E10.29 - Type 1 diabetes mellitus with other diabetic kidney complication; E10.65 - Type 1 diabetes mellitus with hyperglycemia; R80.9 - Proteinuria, unspecified (12) HTN (hypertension) Code(s): I10 - ESSENTIAL (PRIMARY) HYPERTENSION Qualifiers: Hypertension type: essential hypertension Qualified Code(s): I10 - Essential (primary) hypertension (13) Demand ischemia Code(s): I24.8 - OTHER FORMS OF ACUTE ISCHEMIC HEART DISEASE Assessment/Plan 11/15/2016 Echo: Normal RV size and fxn, mild-mod decreased LV fxn, mild LAE, RVSP 50-60 mmHg, mod TR, mild AR, Tr MD 1. Acute on Chronic LV Diastolic Heart Failure with severe pulmonary HTN improving 2. Home-O2 dependent COPD - ?Exacerbation 3. Chronic Hypoxic and Hypercapneic Respiratory Failure 4. CAD s/p multivessel PCI (stent), demand ischemia 5. Acute on CKD 6. HTN/HCVD 7. DM 8. Hypercholesterolemia 9. Hypothyroidism P:1. Decrease Lasix 40 IV qd with monitor diuretic response, renal fxn and electrolytes, cycle trops to document peak 2. Continue ASA 81 qd, Plavix 75 qd, Cardizem CD 180 qd, Toprol XL 25 qd, Ranexa 500 qd. Agree with holding Aldactone and losartan pending renal recovery. 3. O2 to keep SpO2 >90%, IV steroids, inhaled bronchodilators 4. DVT and GI prophylaxis
--- NOTE | 2016-11-16 16:10 | PN ---
Progress Note (short form) - Note Progress Note: Renal Follow up for TACOS Pt seen and examined at the bedside reports that her breathing is better no chest pain Vital Signs Temperature 98.5 F 11/16/16 15:04 Pulse Rate 83 11/16/16 15:04 Respiratory Rate 20 11/16/16 15:04 Blood Pressure 124/70 11/16/16 15:04 O2 Sat by Pulse Oximetry (%) 97 11/16/16 12:18 Intake & Output 11/13/16 11/14/16 11/15/16 11/16/16 23:59 23:59 23:59 23:59 Intake Total 50 1250 700 Output Total 600 Balance 50 1250 100 Weight 100 lb 95 lb 8 oz 98 lb 1 oz Gen: NAD, awake and alert CVS: RRR, No M/R Lungs: + rales LLL. No wheeze Abd: soft NT/ND Ext: trace to 1+ edema in B/L LE. No clubbing or cyanosis CBC, BMP 11/15/16 06:00 11/16/16 06:15 Laboratory Tests 11/15/16 11/15/16 11/16/16 17:00 17:00 06:15 Random Glucose Hemoglobin A1c % 6.3 H D Calcium Creatine Kinase Troponin I U Random Total Protein 58 H Ur Random Urea Nitrogn 389 Urine Creatinine 24.5 Protein/Creatinin Ratio 2.36 11/16/16 06:15 Random Glucose 201 H D Hemoglobin A1c % Calcium 9.1 Creatine Kinase 24 L Troponin I 0.28 H U Random Total Protein Ur Random Urea Nitrogn Urine Creatinine Protein/Creatinin Ratio Current Medications Acetaminophen (Tylenol -) 650 mg PO Q4H PRN PRN Reason: FEVER OR PAIN Albuterol/Ipratropium (Duoneb -) 1 amp NEB QIDR [facility] Last Admin: 11/16/16 12:18 Dose: 1 amp Aspirin (Ecotrin -) 81 mg PO DAILY [facility] Last Admin: 11/16/16 10:35 Dose: 81 mg Clopidogrel Bisulfate (Plavix -) 75 mg PO DAILY [facility] Last Admin: 11/16/16 10:35 Dose: 75 mg Diltiazem HCl (Cardizem Cd -) 180 mg PO DAILY [facility] Last Admin: 11/16/16 10:35 Dose: 180 mg Docusate Sodium (Colace -) 100 mg PO DAILY [facility] Last Admin: 11/16/16 10:35 Dose: 100 mg Dorzolamide HCl (Trusopt 2%) 1 drop OD DAILY [facility] Last Admin: 11/16/16 10:36 Dose: 1 drop Folic Acid (Folic Acid -) 1 mg PO DAILY [facility] Last Admin: 11/16/16 10:35 Dose: 1 mg Furosemide (Lasix Injection -) 40 mg IVPUSH DAILY [facility] Heparin Sodium (Porcine) (Heparin -) 5,000 unit SQ BID [facility] Last Admin: 11/16/16 10:33 Dose: 5,000 unit Insulin Aspart (Novolog Vial Sliding Scale -) 1 vial SQ ACHS [facility] PRN Reason: Protocol Last Admin: 11/16/16 11:30 Dose: 6 unit Latanoprost (Xalatan 0.005% Eye Drops -) 1 drop OU HS [facility] Last Admin: 11/15/16 21:51 Dose: 1 drop Levothyroxine Sodium (Synthroid -) 75 mcg PO DAILY@0700 [facility] Last Admin: 11/16/16 06:30 Dose: 75 mcg Methylprednisolone Sodium Succinate (Solu-Medrol -) 20 mg IVPB Q8H-IV [facility] Metoprolol Succinate (Toprol Xl -) 25 mg PO DAILY [facility] Last Admin: 11/16/16 10:35 Dose: 25 mg Ranolazine (Ranexa -) 500 mg PO DAILY [facility] Last Admin: 11/16/16 10:35 Dose: 500 mg A/P 81 year old woman with PMhx of DM, Hyperlipidemia, COPD on home O2, CAD, CHF, Pulmonary hypertension who presented with SOB and found to have BUN/Cr of 80/ 2.7. #Acute Renal Failure UA with 2+ protein, FeNa was < 1% indicating decreased renal profusion with preserved tubular function UPCR is 2.4 Renal function slightly improved/stable with IV diuretics continue diuretics as per cardiology Trend BUN/cr and electrolytes #Acute SOB/CHF/COPD ECHO showed decreased LVEF Continue IV lasix on IV steroids #DM UPCR is 2.4 would benifit from EMMANUELLE/ARB once renal function stable Thank you Will continue to follow Brandon Hampton DO
[2016-11-16] MEDS ORDERED: INSULIN (NOVOLOG) ASPART 100 UNITS/ML 10ML VIAL ONE (18:13)
[2016-11-16] MEDS ORDERED: PT OWN MED DRAWER 7, Y5N ONE (21:01)
[2016-11-16] MEDS: LATANOPROST 0.005% OPHTH SOLN 2.5ML BOTTLE OU SCH (22:53)
[2016-11-17] MEDS: ALBUTEROL SO4 2.5/IPRATROPIUM 0.5 INH SOL 3 ML VIAL.NEB. NEB SCH ×4 (00:14→18:18)
[2016-11-17] MEDS: methylPREDNISolone NA SUCC 40 MG/1 ML VIAL IVPB SCH ×3 (02:56→17:34)
[2016-11-17] MEDS: INSULIN SLIDING SCALE (NOVOLOG) 1 VIAL SQ SCH ×4 (06:22→23:33)
[2016-11-17] MEDS: LEVOTHYROXINE NA 75 MCG TABLET (FP) PO SCH (06:22)
[2016-11-17] MEDS ORDERED: PT OWN MED DRAWER 7, Y5N ONE (09:56)
[2016-11-17] MEDS: RANOLAZINE E.R. 500 MG TABLET (FP) PO SCH (10:28)
[2016-11-17] MEDS: ASPIRIN COATED 81 MG TABLET.EC PO SCH (10:28)
[2016-11-17] MEDS: CLOPIDOGREL BISULFATE 75 MG TABLET (FP) PO SCH (10:28)
[2016-11-17] MEDS: METOPROLOL SUCCINATE 25 MG TAB.SR.24H (FP) PO SCH (10:28)
[2016-11-17] MEDS: HEPARIN NA (PORCINE) 5,000 UNITS/ML 1ML VIAL SQ SCH ×2 (10:28→23:22)
[2016-11-17] MEDS: DOCUSATE SODIUM 100 MG CAPSULE (FP) PO SCH (10:28)
[2016-11-17] MEDS: FUROSEMIDE 40 MG/4 ML INJECTABLE VIAL IVPUSH SCH (10:28)
[2016-11-17] MEDS: FOLIC ACID 1 MG TABLET (FP) PO SCH (10:28)
[2016-11-17] MEDS: DORZOLAMIDE 2% HCL OPHTHALMIC SOLUTION 10 ML BOTTLE OD SCH (10:29)
[2016-11-17 10:55] LABS: CALCIUM 9.2 mg/dL (8.5-10.1); CREATININE 2.6 mg/dL (0.55-1.02); MAGNESIUM 2.5 mg/dL (1.8-2.4); PHOSPHOROUS 4.1 mg/dL (2.5-4.9); TROPONIN I 0.2 ng/ml (0.00-0.05)
--- NOTE | 2016-11-17 11:54 | PN ---
Progress Note (short form) - Note Progress Note: Renal Follow up for TACOS Pt seen and examined at the bedside still has a cough and mild sob although improved from presentation no chest pain, n/v/d Vital Signs Temperature 97.9 F 11/17/16 06:00 Pulse Rate 77 11/17/16 06:00 Respiratory Rate 20 11/17/16 06:00 Blood Pressure 148/68 11/17/16 06:00 O2 Sat by Pulse Oximetry (%) 99 11/16/16 21:00 Intake & Output 11/14/16 11/15/16 11/16/16 11/17/16 23:59 23:59 23:59 23:59 Intake Total 50 1250 1000 15 Output Total 600 300 Balance 50 1250 400 -285 Weight 100 lb 95 lb 8 oz 98 lb 1 oz 99 lb 2 oz Gen: NAD, awake and alert CVS: RRR, No M/R Lungs: + rales LLL. No wheeze Abd: soft NT/ND Ext: No edema in LE CBC, BMP 11/15/16 06:00 11/17/16 06:00 Current Medications Acetaminophen (Tylenol -) 650 mg PO Q4H PRN PRN Reason: FEVER OR PAIN Albuterol/Ipratropium (Duoneb -) 1 amp NEB QIDR [facility] Last Admin: 11/17/16 07:05 Dose: 1 amp Aspirin (Ecotrin -) 81 mg PO DAILY [facility] Last Admin: 11/17/16 10:28 Dose: 81 mg Clopidogrel Bisulfate (Plavix -) 75 mg PO DAILY [facility] Last Admin: 11/17/16 10:28 Dose: 75 mg Diltiazem HCl (Cardizem Cd -) 180 mg PO DAILY [facility] Last Admin: 11/17/16 10:27 Dose: 180 mg Docusate Sodium (Colace -) 100 mg PO DAILY [facility] Last Admin: 11/17/16 10:28 Dose: 100 mg Dorzolamide HCl (Trusopt 2%) 1 drop OD DAILY [facility] Last Admin: 11/17/16 10:29 Dose: 1 drop Folic Acid (Folic Acid -) 1 mg PO DAILY [facility] Last Admin: 11/17/16 10:28 Dose: 1 mg Furosemide (Lasix Injection -) 40 mg IVPUSH DAILY [facility] Last Admin: 11/17/16 10:28 Dose: 40 mg Heparin Sodium (Porcine) (Heparin -) 5,000 unit SQ BID [facility] Last Admin: 11/17/16 10:28 Dose: 5,000 unit Insulin Aspart (Novolog Vial Sliding Scale -) 1 vial SQ ACHS [facility] PRN Reason: Protocol Last Admin: 11/17/16 06:22 Dose: 2 unit Latanoprost (Xalatan 0.005% Eye Drops -) 1 drop OU HS [facility] Last Admin: 11/16/16 22:53 Dose: 1 drop Levothyroxine Sodium (Synthroid -) 75 mcg PO DAILY@0700 [facility] Last Admin: 11/17/16 06:22 Dose: 75 mcg Methylprednisolone Sodium Succinate (Solu-Medrol -) 20 mg IVPB Q8H-IV [facility] Last Admin: 11/17/16 10:28 Dose: 20 mg Metoprolol Succinate (Toprol Xl -) 25 mg PO DAILY [facility] Last Admin: 11/17/16 10:28 Dose: 25 mg Ranolazine (Ranexa -) 500 mg PO DAILY [facility] Last Admin: 11/17/16 10:28 Dose: 500 mg A/P 81 year old woman with PMhx of DM, Hyperlipidemia, COPD on home O2, CAD, CHF, Pulmonary hypertension who presented with SOB and found to have BUN/Cr of 80/ 2.7. #Acute Renal Failure in setting of CHF Renal function stable/mildly improved with diuretics continue lasix as per cardiology Trend renal function, electrolytes, daily weights #Acute SOB/CHF/COPD ECHO showed decreased LVEF Continue IV lasix LLL congestion persists despite IV lasix Will get CT non-contrast of the chest to access infiltrate vs. consolidation #DM UPCR is 2.4 would benefit from EMMANUELLE/ARB once renal function stable Brandon Hampton DO
--- NOTE | 2016-11-17 13:25 | PN ---
Progress Note (short form) - Note Progress Note: PULMONARY MILD SUBJECTIVE IMPROVEMENT VSS/AFEBRILE ANICTERIC DISTANT B/L BREATH SOUNDS S1S2 IRREGULAR BS+ DIMINISHED B/L LOWER EXT EDEMA LABS/MEDS/IMAGING/NOTES REVIEWED Acute on Chronic LV Diastolic Heart Failure Pulmonary HTN COPD Chronic Hypoxic and Hypercapneic Respiratory Failure CAD HTN DM Hypercholesterolemia - IV lasix - monitor urine output, creatinine - daily weights, I/Os - echocardiogram reviewed - O2 to keep SpO2 >90% - reduce steroids - inhaled bronchodilators - urine lytes, urine creatinine - glucose control while on systemic steroids - cardiology, renal consults - DVT prophylaxis - CT chest Corazon PERDOMO MD
--- NOTE | 2016-11-17 16:13 | PN ---
Progress Note, Physician History of Present Illness: Dyspnea and chest tightness slowly improving. - Current Medication List Current Medications: Active Medications Acetaminophen (Tylenol -) 650 mg PO Q4H PRN PRN Reason: FEVER OR PAIN Albuterol/Ipratropium (Duoneb -) 1 amp NEB QIDR [facility] Last Admin: 11/17/16 11:45 Dose: 1 amp Aspirin (Ecotrin -) 81 mg PO DAILY [facility] Last Admin: 11/17/16 10:28 Dose: 81 mg Clopidogrel Bisulfate (Plavix -) 75 mg PO DAILY [facility] Last Admin: 11/17/16 10:28 Dose: 75 mg Diltiazem HCl (Cardizem Cd -) 180 mg PO DAILY [facility] Last Admin: 11/17/16 10:27 Dose: 180 mg Docusate Sodium (Colace -) 100 mg PO DAILY [facility] Last Admin: 11/17/16 10:28 Dose: 100 mg Dorzolamide HCl (Trusopt 2%) 1 drop OD DAILY [facility] Last Admin: 11/17/16 10:29 Dose: 1 drop Folic Acid (Folic Acid -) 1 mg PO DAILY [facility] Last Admin: 11/17/16 10:28 Dose: 1 mg Furosemide (Lasix Injection -) 40 mg IVPUSH DAILY [facility] Last Admin: 11/17/16 10:28 Dose: 40 mg Heparin Sodium (Porcine) (Heparin -) 5,000 unit SQ BID [facility] Last Admin: 11/17/16 10:28 Dose: 5,000 unit Insulin Aspart (Novolog Vial Sliding Scale -) 1 vial SQ ACHS [facility] PRN Reason: Protocol Last Admin: 11/17/16 12:09 Dose: 10 unit Latanoprost (Xalatan 0.005% Eye Drops -) 1 drop OU HS [facility] Last Admin: 11/16/16 22:53 Dose: 1 drop Levothyroxine Sodium (Synthroid -) 75 mcg PO DAILY@0700 [facility] Last Admin: 11/17/16 06:22 Dose: 75 mcg Methylprednisolone Sodium Succinate (Solu-Medrol -) 20 mg IVPB Q8H-IV [facility] Last Admin: 11/17/16 10:28 Dose: 20 mg Metoprolol Succinate (Toprol Xl -) 25 mg PO DAILY [facility] Last Admin: 11/17/16 10:28 Dose: 25 mg Ranolazine (Ranexa -) 500 mg PO DAILY [facility] Last Admin: 11/17/16 10:28 Dose: 500 mg - Objective Vital Signs: Vital Signs Temperature 97.7 F 11/17/16 14:55 Pulse Rate 85 11/17/16 14:55 Respiratory Rate 20 11/17/16 14:55 Blood Pressure 132/71 11/17/16 14:55 O2 Sat by Pulse Oximetry (%) 99 11/17/16 09:00 Constitutional: Yes: No Distress, Calm, Thin Neck: Yes: Supple Cardiovascular: Yes: Regular Rate and Rhythm Respiratory: Yes: Regular, Diminished, On Nasal O2, SOB Gastrointestinal: Yes: Normal Bowel Sounds, Soft Edema: No Labs: CBC, BMP 11/15/16 06:00 11/17/16 06:00 INR, PTT INR 0.99 (0.82-1.09) 11/14/16 12:40 Problem List - Problems (1) Acute kidney injury Code(s): N17.9 - ACUTE KIDNEY FAILURE, UNSPECIFIED (2) Acute on chronic diastolic (congestive) heart failure Code(s): I50.33 - ACUTE ON CHRONIC DIASTOLIC (CONGESTIVE) HEART FAILURE (3) COPD (chronic obstructive pulmonary disease) Code(s): J44.9 - CHRONIC OBSTRUCTIVE PULMONARY DISEASE, UNSPECIFIED Qualifiers : COPD type: unspecified COPD Qualified Code(s): J44.9 - Chronic obstructive pulmonary disease, unspecified (4) Chronic respiratory failure with hypoxia Code(s): J96.11 - CHRONIC RESPIRATORY FAILURE WITH HYPOXIA (5) Dyspnea Code(s): R06.00 - DYSPNEA, UNSPECIFIED Qualifiers: Dyspnea type: shortness of breath Qualified Code(s): R06.02 - Shortness of breath (6) Hypercholesteremia Code(s): E78.0 - PURE HYPERCHOLESTEROLEMIA * DO NOT USE * (7) Pulmonary hypertension Code(s): I27.2 - OTHER SECONDARY PULMONARY HYPERTENSION (8) Anemia Code(s): D64.9 - ANEMIA, UNSPECIFIED Qualifiers: Anemia type: iron deficiency anemia due to chronic blood loss (9) CAD (coronary artery disease) Code(s): I25.10 - ATHSCL HEART DISEASE OF [place] CORONARY ARTERY W/O ANG PCTRS Qualifiers: Coronary Disease-Associated Artery/Lesion type: [place] artery [place] vs. transplanted heart: [place] heart Associated angina: without angina Qualified Code(s): I25.10 - Atherosclerotic heart disease of [place] coronary artery without angina pectoris (10) COPD exacerbation Code(s): J44.1 - CHRONIC OBSTRUCTIVE PULMONARY DISEASE W (ACUTE) EXACERBATION (11) Diabetes mellitus, insulin dependent (IDDM), uncontrolled Code(s): E10.65 - TYPE 1 DIABETES MELLITUS WITH HYPERGLYCEMIA Qualifiers: Diabetes mellitus complication status: with kidney complications Diabetes mellitus complication detail: with nephropathy Qualified Code(s) : E10.29 - Type 1 diabetes mellitus with other diabetic kidney complication; E10.65 - Type 1 diabetes mellitus with hyperglycemia; R80.9 - Proteinuria, unspecified (12) HTN (hypertension) Code(s): I10 - ESSENTIAL (PRIMARY) HYPERTENSION Qualifiers: Hypertension type: essential hypertension Qualified Code(s): I10 - Essential (primary) hypertension (13) Demand ischemia Code(s): I24.8 - OTHER FORMS OF ACUTE ISCHEMIC HEART DISEASE Assessment/Plan 11/15/2016 Echo: Normal RV size and fxn, mild-mod decreased LV fxn, mild LAE, RVSP 50-60 mmHg, mod TR, mild AR, Tr LA 1. Acute on Chronic LV Diastolic Heart Failure with severe pulmonary HTN improving 2. Home-O2 dependent COPD - ?Exacerbation 3. Chronic Hypoxic and Hypercapneic Respiratory Failure 4. CAD s/p multivessel PCI (stent), demand ischemia 5. Acute on CKD 6. HTN/HCVD 7. DM 8. Hypercholesterolemia 9. Hypothyroidism P:1. Decrease Lasix 40 IV qd with monitor diuretic response, renal fxn and electrolytes, trops have peaked 2. Continue ASA 81 qd, Plavix 75 qd, Cardizem CD 180 qd, Toprol XL 25 qd, Ranexa 500 qd. Agree with holding Aldactone and losartan pending renal recovery. 3. O2 to keep SpO2 >90%, steroid taper, inhaled bronchodilators, f/u chest CT 4. DVT and GI prophylaxis
[2016-11-17] MEDS: LATANOPROST 0.005% OPHTH SOLN 2.5ML BOTTLE OU SCH (23:28)
[2016-11-18] MEDS: ALBUTEROL SO4 2.5/IPRATROPIUM 0.5 INH SOL 3 ML VIAL.NEB. NEB SCH ×5 (00:05→23:11)
[2016-11-18] MEDS: methylPREDNISolone NA SUCC 40 MG/1 ML VIAL IVPB SCH (02:29)
[2016-11-18] MEDS: INSULIN SLIDING SCALE (NOVOLOG) 1 VIAL SQ SCH ×4 (06:58→22:23)
[2016-11-18] MEDS: LEVOTHYROXINE NA 75 MCG TABLET (FP) PO SCH (06:58)
[2016-11-18 07:55] LABS: CREATININE 2.5 mg/dL (0.55-1.02); MAGNESIUM 2.3 mg/dL (1.8-2.4); PHOSPHOROUS 4.2 mg/dL (2.5-4.9)
--- NOTE | 2016-11-18 10:21 | PN ---
Progress Note (short form) - Note Progress Note: PULMONARY MILD SUBJECTIVE IMPROVEMENT VSS/AFEBRILE ANICTERIC DISTANT B/L BREATH SOUNDS S1S2 IRREGULAR BS+ DIMINISHED B/L LOWER EXT EDEMA LABS/MEDS/IMAGING/NOTES REVIEWED CT CHEST REVIEWED Acute on Chronic LV Diastolic Heart Failure Pulmonary HTN COPD Chronic Hypoxic and Hypercapneic Respiratory Failure CAD HTN DM Hypercholesterolemia - IV lasix - monitor urine output, creatinine - daily weights, I/Os - echocardiogram reviewed - O2 to keep SpO2 >90% - reduced steroids - inhaled bronchodilators - urine lytes, urine creatinine - glucose control while on systemic steroids - cardiology, renal consults appreciated - DVT prophylaxis Corazon PERDOMO MD
[2016-11-18] MEDS: ASPIRIN COATED 81 MG TABLET.EC PO SCH (11:33)
[2016-11-18] MEDS: predniSONE 10 MG TABLET (UD) PO SCH (11:33)
[2016-11-18] MEDS: CLOPIDOGREL BISULFATE 75 MG TABLET (FP) PO SCH (11:33)
[2016-11-18] MEDS: FOLIC ACID 1 MG TABLET (FP) PO SCH (11:33)
[2016-11-18] MEDS: RANOLAZINE E.R. 500 MG TABLET (FP) PO SCH (11:33)
[2016-11-18] MEDS: FUROSEMIDE 40 MG/4 ML INJECTABLE VIAL IVPUSH SCH (11:34)
[2016-11-18] MEDS: DOCUSATE SODIUM 100 MG CAPSULE (FP) PO SCH (11:34)
[2016-11-18] MEDS: HEPARIN NA (PORCINE) 5,000 UNITS/ML 1ML VIAL SQ SCH ×2 (11:34→22:23)
[2016-11-18] MEDS: METOPROLOL SUCCINATE 25 MG TAB.SR.24H (FP) PO SCH (11:35)
[2016-11-18] MEDS: DORZOLAMIDE 2% HCL OPHTHALMIC SOLUTION 10 ML BOTTLE OD SCH (11:35)
--- NOTE | 2016-11-18 15:53 | PN ---
Progress Note, Physician History of Present Illness: Dyspnea and chest tightness slowly improving. - Current Medication List Current Medications: Active Medications Acetaminophen (Tylenol -) 650 mg PO Q4H PRN PRN Reason: FEVER OR PAIN Albuterol/Ipratropium (Duoneb -) 1 amp NEB QIDR [facility] Last Admin: 11/18/16 12:50 Dose: Not Given Aspirin (Ecotrin -) 81 mg PO DAILY [facility] Last Admin: 11/18/16 11:33 Dose: 81 mg Clopidogrel Bisulfate (Plavix -) 75 mg PO DAILY [facility] Last Admin: 11/18/16 11:33 Dose: 75 mg Diltiazem HCl (Cardizem Cd -) 180 mg PO DAILY [facility] Last Admin: 11/18/16 11:33 Dose: 180 mg Docusate Sodium (Colace -) 100 mg PO DAILY [facility] Last Admin: 11/18/16 11:34 Dose: 100 mg Dorzolamide HCl (Trusopt 2%) 1 drop OD DAILY [facility] Last Admin: 11/18/16 11:35 Dose: 1 drop Folic Acid (Folic Acid -) 1 mg PO DAILY [facility] Last Admin: 11/18/16 11:33 Dose: 1 mg Furosemide (Lasix Injection -) 40 mg IVPUSH DAILY [facility] Last Admin: 11/18/16 11:34 Dose: 40 mg Heparin Sodium (Porcine) (Heparin -) 5,000 unit SQ BID [facility] Last Admin: 11/18/16 11:34 Dose: 5,000 unit Insulin Aspart (Novolog Vial Sliding Scale -) 1 vial SQ ACHS [facility] PRN Reason: Protocol Last Admin: 11/18/16 13:36 Dose: 6 unit Latanoprost (Xalatan 0.005% Eye Drops -) 1 drop OU HS [facility] Last Admin: 11/17/16 23:28 Dose: Not Given Levothyroxine Sodium (Synthroid -) 75 mcg PO DAILY@0700 [facility] Last Admin: 11/18/16 06:58 Dose: 75 mcg Metoprolol Succinate (Toprol Xl -) 25 mg PO DAILY [facility] Last Admin: 11/18/16 11:35 Dose: 25 mg Prednisone (Deltasone -) 30 mg PO DAILY [facility] Last Admin: 11/18/16 11:33 Dose: 30 mg Ranolazine (Ranexa -) 500 mg PO DAILY [facility] Last Admin: 11/18/16 11:33 Dose: 500 mg - Objective Vital Signs: Vital Signs Temperature 97.9 F 11/18/16 14:24 Pulse Rate 79 11/18/16 14:24 Respiratory Rate 20 11/18/16 14:24 Blood Pressure 164/75 11/18/16 14:24 O2 Sat by Pulse Oximetry (%) 100 11/17/16 21:00 Constitutional: Yes: No Distress, Calm Neck: Yes: Supple Cardiovascular: Yes: Regular Rate and Rhythm Respiratory: Yes: Regular, Diminished, On Nasal O2 Gastrointestinal: Yes: Normal Bowel Sounds, Soft Edema: No Labs: CBC, BMP 11/15/16 06:00 11/18/16 06:00 INR, PTT INR 0.99 (0.82-1.09) 11/14/16 12:40 Problem List - Problems (1) Acute kidney injury Code(s): N17.9 - ACUTE KIDNEY FAILURE, UNSPECIFIED (2) Acute on chronic diastolic (congestive) heart failure Code(s): I50.33 - ACUTE ON CHRONIC DIASTOLIC (CONGESTIVE) HEART FAILURE (3) COPD (chronic obstructive pulmonary disease) Code(s): J44.9 - CHRONIC OBSTRUCTIVE PULMONARY DISEASE, UNSPECIFIED Qualifiers : COPD type: unspecified COPD Qualified Code(s): J44.9 - Chronic obstructive pulmonary disease, unspecified (4) Chronic respiratory failure with hypoxia Code(s): J96.11 - CHRONIC RESPIRATORY FAILURE WITH HYPOXIA (5) Dyspnea Code(s): R06.00 - DYSPNEA, UNSPECIFIED Qualifiers: Dyspnea type: shortness of breath Qualified Code(s): R06.02 - Shortness of breath (6) Hypercholesteremia Code(s): E78.0 - PURE HYPERCHOLESTEROLEMIA * DO NOT USE * (7) Pulmonary hypertension Code(s): I27.2 - OTHER SECONDARY PULMONARY HYPERTENSION (8) Anemia Code(s): D64.9 - ANEMIA, UNSPECIFIED Qualifiers: Anemia type: iron deficiency anemia due to chronic blood loss (9) CAD (coronary artery disease) Code(s): I25.10 - ATHSCL HEART DISEASE OF [place] CORONARY ARTERY W/O ANG PCTRS Qualifiers: Coronary Disease-Associated Artery/Lesion type: [place] artery [place] vs. transplanted heart: [place] heart Associated angina: without angina Qualified Code(s): I25.10 - Atherosclerotic heart disease of [place] coronary artery without angina pectoris (10) COPD exacerbation Code(s): J44.1 - CHRONIC OBSTRUCTIVE PULMONARY DISEASE W (ACUTE) EXACERBATION (11) Diabetes mellitus, insulin dependent (IDDM), uncontrolled Code(s): E10.65 - TYPE 1 DIABETES MELLITUS WITH HYPERGLYCEMIA Qualifiers: Diabetes mellitus complication status: with kidney complications Diabetes mellitus complication detail: with nephropathy Qualified Code(s) : E10.29 - Type 1 diabetes mellitus with other diabetic kidney complication; E10.65 - Type 1 diabetes mellitus with hyperglycemia; R80.9 - Proteinuria, unspecified (12) HTN (hypertension) Code(s): I10 - ESSENTIAL (PRIMARY) HYPERTENSION Qualifiers: Hypertension type: essential hypertension Qualified Code(s): I10 - Essential (primary) hypertension (13) Demand ischemia Code(s): I24.8 - OTHER FORMS OF ACUTE ISCHEMIC HEART DISEASE Assessment/Plan 11/15/2016 Echo: Normal RV size and fxn, mild-mod decreased LV fxn, mild LAE, RVSP 50-60 mmHg, mod TR, mild AR, Tr CA 11/17/2016: Chest CT: Left mid-upper infiltrate, min pleural effusions, severe emphysema 1. Acute on Chronic LV Diastolic Heart Failure with severe pulmonary HTN improving 2. Home-O2 dependent COPD - ?Exacerbation 3. Chronic Hypoxic and Hypercapneic Respiratory Failure 4. CAD s/p multivessel PCI (stent), demand ischemia 5. Acute on CKD 6. HTN/HCVD 7. DM 8. Hypercholesterolemia 9. Hypothyroidism P:1. Decrease Lasix 40 po qd with monitor diuretic response, renal fxn and electrolytes, trops have peaked 2. Continue ASA 81 qd, Plavix 75 qd, Cardizem CD 180 qd, Toprol XL 25 qd, Ranexa 500 qd. Agree with holding Aldactone and losartan pending renal recovery. 3. O2 to keep SpO2 >90%, oral steroid taper, inhaled bronchodilators 4. DVT and GI prophylaxis
[2016-11-18] MEDS: LATANOPROST 0.005% OPHTH SOLN 2.5ML BOTTLE OU SCH (22:23)
[2016-11-19] MEDS: LEVOTHYROXINE NA 75 MCG TABLET (FP) PO SCH (06:02)
[2016-11-19] MEDS: INSULIN SLIDING SCALE (NOVOLOG) 1 VIAL SQ SCH ×4 (06:24→22:09)
[2016-11-19] MEDS: ALBUTEROL SO4 2.5/IPRATROPIUM 0.5 INH SOL 3 ML VIAL.NEB. NEB SCH ×3 (06:29→18:30)
[2016-11-19] MEDS ORDERED: INSULIN (NOVOLOG) ASPART 100 UNITS/ML 10ML VIAL ONE (06:57)
[2016-11-19 07:55] LABS: CALCIUM 8.5 mg/dL (8.5-10.1); CREATININE 2.3 mg/dL (0.55-1.02); MAGNESIUM 2.3 mg/dL (1.8-2.4)
[2016-11-19] MEDS: methylPREDNISolone NA SUCC 40 MG/1 ML VIAL IVPB SCH (08:43)
[2016-11-19] MEDS: DOCUSATE SODIUM 100 MG CAPSULE (FP) PO SCH (10:18)
[2016-11-19] MEDS: FOLIC ACID 1 MG TABLET (FP) PO SCH (10:19)
[2016-11-19] MEDS: RANOLAZINE E.R. 500 MG TABLET (FP) PO SCH (10:19)
[2016-11-19] MEDS: FUROSEMIDE 40 MG TABLET (FP) PO SCH (10:19)
[2016-11-19] MEDS: predniSONE 10 MG TABLET (UD) PO SCH (10:19)
[2016-11-19] MEDS: METOPROLOL SUCCINATE 25 MG TAB.SR.24H (FP) PO SCH (10:19)
[2016-11-19] MEDS: CLOPIDOGREL BISULFATE 75 MG TABLET (FP) PO SCH (10:19)
[2016-11-19] MEDS: ASPIRIN COATED 81 MG TABLET.EC PO SCH (10:19)
[2016-11-19] MEDS: HEPARIN NA (PORCINE) 5,000 UNITS/ML 1ML VIAL SQ SCH ×2 (10:20→22:05)
[2016-11-19] MEDS ORDERED: PT OWN MED DRAWER 7, Y5N ONE (10:26)
[2016-11-19] MEDS: DORZOLAMIDE 2% HCL OPHTHALMIC SOLUTION 10 ML BOTTLE OD SCH (10:30)
--- NOTE | 2016-11-19 11:00 | PN ---
Progress Note (short form) - Note Progress Note: Renal Follow up for TACOS Pt seen and examined at the bedside no acute complaints feels better still has cough, w/o sputum production no fever or chills Vital Signs Temperature 98.0 F 11/19/16 10:00 Pulse Rate 86 11/19/16 10:00 Respiratory Rate 20 11/19/16 10:00 Blood Pressure 156/88 11/19/16 10:00 O2 Sat by Pulse Oximetry (%) 100 11/19/16 09:00 Intake & Output 11/16/16 11/17/16 11/18/16 11/19/16 23:59 23:59 23:59 23:59 Intake Total 3751 746 3631 200 Output Total 600 300 300 700 Balance 400 245 860 -500 Weight 98 lb 1 oz 99 lb 2 oz 99 lb 9 oz 101 lb 3.2 oz Gen: NAD, awake and alert CVS: RRR, No M/R Lungs: + rales LLL. No wheeze Abd: soft NT/ND Ext: No edema in LE CBC, BMP 11/15/16 06:00 11/19/16 06:15 Current Medications Acetaminophen (Tylenol -) 650 mg PO Q4H PRN PRN Reason: FEVER OR PAIN Albuterol/Ipratropium (Duoneb -) 1 amp NEB QIDR [facility] Last Admin: 11/19/16 06:29 Dose: 1 amp Aspirin (Ecotrin -) 81 mg PO DAILY [facility] Last Admin: 11/19/16 10:19 Dose: 81 mg Clopidogrel Bisulfate (Plavix -) 75 mg PO DAILY [facility] Last Admin: 11/19/16 10:19 Dose: 75 mg Diltiazem HCl (Cardizem Cd -) 180 mg PO DAILY [facility] Last Admin: 11/19/16 10:18 Dose: 180 mg Docusate Sodium (Colace -) 100 mg PO DAILY [facility] Last Admin: 11/19/16 10:18 Dose: 100 mg Dorzolamide HCl (Trusopt 2%) 1 drop OD DAILY [facility] Last Admin: 11/19/16 10:30 Dose: 1 drop Folic Acid (Folic Acid -) 1 mg PO DAILY [facility] Last Admin: 11/19/16 10:19 Dose: 1 mg Furosemide (Lasix -) 40 mg PO DAILY [facility] Last Admin: 11/19/16 10:19 Dose: 40 mg Heparin Sodium (Porcine) (Heparin -) 5,000 unit SQ BID [facility] Last Admin: 11/19/16 10:20 Dose: 5,000 unit Insulin Aspart (Novolog Vial Sliding Scale -) 1 vial SQ ACHS [facility] PRN Reason: Protocol Last Admin: 11/19/16 06:24 Dose: Not Given Latanoprost (Xalatan 0.005% Eye Drops -) 1 drop OU HS [facility] Last Admin: 11/18/16 22:23 Dose: 1 drop Levothyroxine Sodium (Synthroid -) 75 mcg PO DAILY@0700 [facility] Last Admin: 11/19/16 06:02 Dose: 75 mcg Metoprolol Succinate (Toprol Xl -) 25 mg PO DAILY [facility] Last Admin: 11/19/16 10:19 Dose: 25 mg Prednisone (Deltasone -) 30 mg PO DAILY [facility] Last Admin: 11/19/16 10:19 Dose: 30 mg Ranolazine (Ranexa -) 500 mg PO DAILY [facility] Last Admin: 11/19/16 10:19 Dose: 500 mg A/P 81 year old woman with PMhx of DM, Hyperlipidemia, COPD on home O2, CAD, CHF, Pulmonary hypertension who presented with SOB and found to have BUN/Cr of 80/ 2.7. #Acute Renal Failure in setting of CHF Renal function stable/mildly improved with diuretics continue Lasix PO daily Trend BUN/cr #Acute SOB/CHF/COPD ECHO showed decreased LVEF CT showed infiltrate vs. 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
--- NOTE | 2016-11-19 14:28 | PN ---
Progress Note, Physician History of Present Illness: Dyspnea and chest tightness resolved. - Current Medication List Current Medications: Active Medications Acetaminophen (Tylenol -) 650 mg PO Q4H PRN PRN Reason: FEVER OR PAIN Albuterol/Ipratropium (Duoneb -) 1 amp NEB QIDR [facility] Last Admin: 11/19/16 11:42 Dose: 1 amp Aspirin (Ecotrin -) 81 mg PO DAILY [facility] Last Admin: 11/19/16 10:19 Dose: 81 mg Clopidogrel Bisulfate (Plavix -) 75 mg PO DAILY [facility] Last Admin: 11/19/16 10:19 Dose: 75 mg Diltiazem HCl (Cardizem Cd -) 180 mg PO DAILY [facility] Last Admin: 11/19/16 10:18 Dose: 180 mg Docusate Sodium (Colace -) 100 mg PO DAILY [facility] Last Admin: 11/19/16 10:18 Dose: 100 mg Dorzolamide HCl (Trusopt 2%) 1 drop OD DAILY [facility] Last Admin: 11/19/16 10:30 Dose: 1 drop Folic Acid (Folic Acid -) 1 mg PO DAILY [facility] Last Admin: 11/19/16 10:19 Dose: 1 mg Furosemide (Lasix -) 40 mg PO DAILY [facility] Last Admin: 11/19/16 10:19 Dose: 40 mg Heparin Sodium (Porcine) (Heparin -) 5,000 unit SQ BID [facility] Last Admin: 11/19/16 10:20 Dose: 5,000 unit Insulin Aspart (Novolog Vial Sliding Scale -) 1 vial SQ ACHS [facility] PRN Reason: Protocol Last Admin: 11/19/16 12:42 Dose: 8 unit Latanoprost (Xalatan 0.005% Eye Drops -) 1 drop OU HS [facility] Last Admin: 11/18/16 22:23 Dose: 1 drop Levothyroxine Sodium (Synthroid -) 75 mcg PO DAILY@0700 [facility] Last Admin: 11/19/16 06:02 Dose: 75 mcg Metoprolol Succinate (Toprol Xl -) 25 mg PO DAILY [facility] Last Admin: 11/19/16 10:19 Dose: 25 mg Prednisone (Deltasone -) 30 mg PO DAILY [facility] Last Admin: 11/19/16 10:19 Dose: 30 mg Ranolazine (Ranexa -) 500 mg PO DAILY [facility] Last Admin: 11/19/16 10:19 Dose: 500 mg - Objective Vital Signs: Vital Signs Temperature 98.0 F 11/19/16 10:00 Pulse Rate 81 11/19/16 11:10 Respiratory Rate 20 11/19/16 10:00 Blood Pressure 156/88 11/19/16 10:00 O2 Sat by Pulse Oximetry (%) 99 11/19/16 11:10 Constitutional: Yes: No Distress, Calm, Thin Neck: Yes: Supple Cardiovascular: Yes: Regular Rate and Rhythm Respiratory: Yes: Regular, Diminished, On Nasal O2 Gastrointestinal: Yes: Normal Bowel Sounds, Soft Edema: No Labs: CBC, BMP 11/15/16 06:00 11/19/16 06:15 INR, PTT INR 0.99 (0.82-1.09) 11/14/16 12:40 Problem List - Problems (1) Acute kidney injury Code(s): N17.9 - ACUTE KIDNEY FAILURE, UNSPECIFIED (2) Acute on chronic diastolic (congestive) heart failure Code(s): I50.33 - ACUTE ON CHRONIC DIASTOLIC (CONGESTIVE) HEART FAILURE (3) COPD (chronic obstructive pulmonary disease) Code(s): J44.9 - CHRONIC OBSTRUCTIVE PULMONARY DISEASE, UNSPECIFIED Qualifiers : COPD type: unspecified COPD Qualified Code(s): J44.9 - Chronic obstructive pulmonary disease, unspecified (4) Chronic respiratory failure with hypoxia Code(s): J96.11 - CHRONIC RESPIRATORY FAILURE WITH HYPOXIA (5) Dyspnea Code(s): R06.00 - DYSPNEA, UNSPECIFIED Qualifiers: Dyspnea type: shortness of breath Qualified Code(s): R06.02 - Shortness of breath (6) Hypercholesteremia Code(s): E78.0 - PURE HYPERCHOLESTEROLEMIA * DO NOT USE * (7) Pulmonary hypertension Code(s): I27.2 - OTHER SECONDARY PULMONARY HYPERTENSION (8) Anemia Code(s): D64.9 - ANEMIA, UNSPECIFIED Qualifiers: Anemia type: iron deficiency anemia due to chronic blood loss (9) CAD (coronary artery disease) Code(s): I25.10 - ATHSCL HEART DISEASE OF [place] CORONARY ARTERY W/O ANG PCTRS Qualifiers: Coronary Disease-Associated Artery/Lesion type: [place] artery [place] vs. transplanted heart: [place] heart Associated angina: without angina Qualified Code(s): I25.10 - Atherosclerotic heart disease of [place] coronary artery without angina pectoris (10) COPD exacerbation Code(s): J44.1 - CHRONIC OBSTRUCTIVE PULMONARY DISEASE W (ACUTE) EXACERBATION (11) Diabetes mellitus, insulin dependent (IDDM), uncontrolled Code(s): E10.65 - TYPE 1 DIABETES MELLITUS WITH HYPERGLYCEMIA Qualifiers: Diabetes mellitus complication status: with kidney complications Diabetes mellitus complication detail: with nephropathy Qualified Code(s) : E10.29 - Type 1 diabetes mellitus with other diabetic kidney complication; E10.65 - Type 1 diabetes mellitus with hyperglycemia; R80.9 - Proteinuria, unspecified (12) HTN (hypertension) Code(s): I10 - ESSENTIAL (PRIMARY) HYPERTENSION Qualifiers: Hypertension type: essential hypertension Qualified Code(s): I10 - Essential (primary) hypertension (13) Demand ischemia Code(s): I24.8 - OTHER FORMS OF ACUTE ISCHEMIC HEART DISEASE Assessment/Plan 11/15/2016 Echo: Normal RV size and fxn, mild-mod decreased LV fxn, mild LAE, RVSP 50-60 mmHg, mod TR, mild AR, Tr [place] 11/17/2016: Chest CT: Left mid-upper infiltrate, min pleural effusions, severe emphysema 1. Acute on Chronic LV Diastolic Heart Failure with severe pulmonary HTN improving 2. Home-O2 dependent COPD - Exacerbation 3. Chronic Hypoxic and Hypercapneic Respiratory Failure 4. CAD s/p multivessel PCI (stent), demand ischemia 5. Acute on CKD 6. HTN/HCVD 7. DM 8. Hypercholesterolemia 9. Hypothyroidism P:1. Continue Lasix 40 po qd with monitor diuretic response, renal fxn and electrolytes, trops have peaked 2. Continue ASA 81 qd, Plavix 75 qd, Cardizem CD 180 qd, Toprol XL 25 qd, Ranexa 500 qd. Agree with holding Aldactone and losartan pending renal recovery. 3. O2 to keep SpO2 >90%, oral steroid taper, inhaled bronchodilators 4. DVT and GI prophylaxis, d/c planning
[2016-11-19] MEDS: LATANOPROST 0.005% OPHTH SOLN 2.5ML BOTTLE OU SCH (22:09)
[2016-11-20] MEDS: ALBUTEROL SO4 2.5/IPRATROPIUM 0.5 INH SOL 3 ML VIAL.NEB. NEB SCH ×5 (00:05→23:00)
[2016-11-20] MEDS: LEVOTHYROXINE NA 75 MCG TABLET (FP) PO SCH (06:17)
[2016-11-20] MEDS: INSULIN SLIDING SCALE (NOVOLOG) 1 VIAL SQ SCH ×4 (06:42→21:39)
[2016-11-20 07:48] LABS: CALCIUM 8.9 mg/dL (8.5-10.1); CREATININE 2.5 mg/dL (0.55-1.02); MAGNESIUM 2.3 mg/dL (1.8-2.4)
--- NOTE | 2016-11-20 10:13 | PN ---
Progress Note (short form) - Note Progress Note: Mildly tachypneic and pursue lip breathing while eating breakfast. [place] a little "wobbly" while ambulating to the bathroom last night. Breathing feels better than on admission, but not at baseline. Intake & Output 11/17/16 11/18/16 11/19/16 11/20/16 23:59 23:59 23:59 23:59 Intake Total 545 1160 300 100 Output Total 300 300 700 Balance 245 860 -400 100 Weight 99 lb 2 oz 99 lb 9 oz 101 lb 3.2 oz 99 lb 14.4 oz Last Vital Signs Temp Pulse Resp BP Pulse Ox 98.1 F 77 20 146/63 96 11/20/16 05:35 11/20/16 05:35 11/20/16 05:35 11/20/16 05:35 11/19/16 21:00 Active Medications Acetaminophen (Tylenol -) 650 mg PO Q4H PRN PRN Reason: FEVER OR PAIN Albuterol/Ipratropium (Duoneb -) 1 amp NEB QIDR [facility] Last Admin: 11/20/16 06:45 Dose: 1 amp Aspirin (Ecotrin -) 81 mg PO DAILY [facility] Last Admin: 11/19/16 10:19 Dose: 81 mg Clopidogrel Bisulfate (Plavix -) 75 mg PO DAILY [facility] Last Admin: 11/19/16 10:19 Dose: 75 mg Diltiazem HCl (Cardizem Cd -) 180 mg PO DAILY [facility] Last Admin: 11/19/16 10:18 Dose: 180 mg Docusate Sodium (Colace -) 100 mg PO DAILY [facility] Last Admin: 11/19/16 10:18 Dose: 100 mg Dorzolamide HCl (Trusopt 2%) 1 drop OD DAILY [facility] Last Admin: 11/19/16 10:30 Dose: 1 drop Folic Acid (Folic Acid -) 1 mg PO DAILY [facility] Last Admin: 11/19/16 10:19 Dose: 1 mg Furosemide (Lasix -) 40 mg PO DAILY [facility] Last Admin: 11/19/16 10:19 Dose: 40 mg Heparin Sodium (Porcine) (Heparin -) 5,000 unit SQ BID [facility] Last Admin: 11/19/16 22:05 Dose: 5,000 unit Insulin Aspart (Novolog Vial Sliding Scale -) 1 vial SQ ACHS [facility] PRN Reason: Protocol Last Admin: 11/20/16 06:42 Dose: Not Given Latanoprost (Xalatan 0.005% Eye Drops -) 1 drop OU HS [facility] Last Admin: 11/19/16 22:09 Dose: 1 drop Levothyroxine Sodium (Synthroid -) 75 mcg PO DAILY@0700 [facility] Last Admin: 11/20/16 06:17 Dose: 75 mcg Metoprolol Succinate (Toprol Xl -) 25 mg PO DAILY [facility] Last Admin: 11/19/16 10:19 Dose: 25 mg Prednisone (Deltasone -) 30 mg PO DAILY [facility] Last Admin: 11/19/16 10:19 Dose: 30 mg Ranolazine (Ranexa -) 500 mg PO DAILY [facility] Last Admin: 11/19/16 10:19 Dose: 500 mg Constitutional: Yes: Mildly tachypneic at rest, thin Neck: Yes: Supple Cardiovascular: Yes: Regular Rate and Rhythm Respiratory: Yes: Regular, Diminished, On Nasal O2 Gastrointestinal: Yes: Normal Bowel Sounds, Soft Edema: No Labs: Laboratory Results - last 24 hr 11/19/16 11/19/16 11/19/16 12:37 17:27 22:07 Sodium Potassium Chloride Carbon Dioxide Anion Gap BUN Creatinine POC Glucometer 336 284 158 Random Glucose Calcium Magnesium Nwlfb-6-Lzakjjwdt (%) Vpjtl-9-Bqspcoxcp (%) Beta Globulins (%) Gamma Globulins (%) M-Manny % Ref Test Comments 11/20/16 11/20/16 11/20/16 05:52 06:00 06:00 Sodium 146 H Potassium 4.3 Chloride 99 Carbon Dioxide 42 H Anion Gap 5 L BUN 76 H Creatinine 2.5 H POC Glucometer 113 Random Glucose 127 H Calcium 8.9 Magnesium 2.3 Rsxso-2-Xcsphdino (%) Cancelled Flkgs-8-Deymgdtji (%) Cancelled Beta Globulins (%) Cancelled Gamma Globulins (%) Cancelled M-Manny % Cancelled Ref Test Comments Cancelled Problem List - Problems (1) Acute kidney injury Code(s): N17.9 - ACUTE KIDNEY FAILURE, UNSPECIFIED (2) Acute on chronic diastolic (congestive) heart failure Code(s): I50.33 - ACUTE ON CHRONIC DIASTOLIC (CONGESTIVE) HEART FAILURE (3) COPD (chronic obstructive pulmonary disease) Code(s): J44.9 - CHRONIC OBSTRUCTIVE PULMONARY DISEASE, UNSPECIFIED Qualifiers : COPD type: unspecified COPD Qualified Code(s): J44.9 - Chronic obstructive pulmonary disease, unspecified (4) Chronic respiratory failure with hypoxia Code(s): J96.11 - CHRONIC RESPIRATORY FAILURE WITH HYPOXIA (5) Dyspnea Code(s): R06.00 - DYSPNEA, UNSPECIFIED Qualifiers: Dyspnea type: shortness of breath Qualified Code(s): R06.02 - Shortness of breath (6) Hypercholesteremia Code(s): E78.0 - PURE HYPERCHOLESTEROLEMIA * DO NOT USE * (7) Pulmonary hypertension Code(s): I27.2 - OTHER SECONDARY PULMONARY HYPERTENSION (8) Anemia Code(s): D64.9 - ANEMIA, UNSPECIFIED Qualifiers: Anemia type: iron deficiency anemia due to chronic blood loss (9) CAD (coronary artery disease) Code(s): I25.10 - ATHSCL HEART DISEASE OF [place] CORONARY ARTERY W/O ANG PCTRS Qualifiers: Coronary Disease-Associated Artery/Lesion type: [place] artery [place] vs. transplanted heart: [place] heart Associated angina: without angina Qualified Code(s): I25.10 - Atherosclerotic heart disease of [place] coronary artery without angina pectoris (10) COPD exacerbation Code(s): J44.1 - CHRONIC OBSTRUCTIVE PULMONARY DISEASE W (ACUTE) EXACERBATION (11) Diabetes mellitus, insulin dependent (IDDM), uncontrolled Code(s): E10.65 - TYPE 1 DIABETES MELLITUS WITH HYPERGLYCEMIA Qualifiers: Diabetes mellitus complication status: with kidney complications Diabetes mellitus complication detail: with nephropathy Qualified Code(s) : E10.29 - Type 1 diabetes mellitus with other diabetic kidney complication; E10.65 - Type 1 diabetes mellitus with hyperglycemia; R80.9 - Proteinuria, unspecified (12) HTN (hypertension) Code(s): I10 - ESSENTIAL (PRIMARY) HYPERTENSION Qualifiers: Hypertension type: essential hypertension Qualified Code(s): I10 - Essential (primary) hypertension (13) Demand ischemia Code(s): I24.8 - OTHER FORMS OF ACUTE ISCHEMIC HEART DISEASE Assessment/Plan O2 dependent COPD Acute on Chronic Hypoxic and Hypercapneic Respiratory Failure Acute on CKD Hypothyroidism Increase Prednisone to BID O2 at 3 L NC PT evaluation Patient requests VNS evaluation BD TX Add Daliresp Zantac BID Add MVI Would likely benefit from short term rehab / Pulmonary rehab Dr Mary
--- NOTE | 2016-11-20 10:47 | PN ---
Progress Note (short form) - Note Progress Note: Renal Follow up for TACOS Pt seen and examined at the bedside has cough sob improved but not at baseline no N/V/D, Abd pain, chest pain Vital Signs Temperature 98.1 F 11/20/16 05:35 Pulse Rate 77 11/20/16 05:35 Respiratory Rate 20 11/20/16 05:35 Blood Pressure 146/63 11/20/16 05:35 O2 Sat by Pulse Oximetry (%) 96 11/19/16 21:00 Intake & Output 11/17/16 11/18/16 11/19/16 11/20/16 23:59 23:59 23:59 23:59 Intake Total 545 1160 300 100 Output Total 300 300 700 Balance 245 860 -400 100 Weight 99 lb 2 oz 99 lb 9 oz 101 lb 3.2 oz 99 lb 14.4 oz Gen: NAD, awake and alert CVS: RRR, No M/R Lungs: + rales LLL. No wheeze Abd: soft NT/ND Ext: No edema in LE CBC, BMP 11/15/16 06:00 11/20/16 06:00 Current Medications Acetaminophen (Tylenol -) 650 mg PO Q4H PRN PRN Reason: FEVER OR PAIN Albuterol/Ipratropium (Duoneb -) 1 amp NEB QIDR [facility] Last Admin: 11/20/16 06:45 Dose: 1 amp Aspirin (Ecotrin -) 81 mg PO DAILY [facility] Last Admin: 11/19/16 10:19 Dose: 81 mg Clopidogrel Bisulfate (Plavix -) 75 mg PO DAILY [facility] Last Admin: 11/19/16 10:19 Dose: 75 mg Diltiazem HCl (Cardizem Cd -) 180 mg PO DAILY [facility] Last Admin: 11/19/16 10:18 Dose: 180 mg Docusate Sodium (Colace -) 100 mg PO DAILY [facility] Last Admin: 11/19/16 10:18 Dose: 100 mg Dorzolamide HCl (Trusopt 2%) 1 drop OD DAILY [facility] Last Admin: 11/19/16 10:30 Dose: 1 drop Folic Acid (Folic Acid -) 1 mg PO DAILY [facility] Last Admin: 11/19/16 10:19 Dose: 1 mg Furosemide (Lasix -) 40 mg PO DAILY [facility] Last Admin: 11/19/16 10:19 Dose: 40 mg Heparin Sodium (Porcine) (Heparin -) 5,000 unit SQ BID [facility] Last Admin: 11/19/16 22:05 Dose: 5,000 unit Insulin Aspart (Novolog Vial Sliding Scale -) 1 vial SQ ACHS [facility] PRN Reason: Protocol Last Admin: 11/20/16 06:42 Dose: Not Given Latanoprost (Xalatan 0.005% Eye Drops -) 1 drop OU HS [facility] Last Admin: 11/19/16 22:09 Dose: 1 drop Levothyroxine Sodium (Synthroid -) 75 mcg PO DAILY@0700 [facility] Last Admin: 11/20/16 06:17 Dose: 75 mcg Metoprolol Succinate (Toprol Xl -) 25 mg PO DAILY [facility] Last Admin: 11/19/16 10:19 Dose: 25 mg Multivitamins/Minerals/Vitamin C (Tab-A-Vit -) 1 tab PO DAILY [facility] Prednisone (Deltasone -) 30 mg PO DAILY [facility] Last Admin: 11/19/16 10:19 Dose: 30 mg Ranitidine HCl (Zantac -) 150 mg PO BID [facility] Ranolazine (Ranexa -) 500 mg PO DAILY [facility] Last Admin: 11/19/16 10:19 Dose: 500 mg A/P 81 year old woman with PMhx of DM, Hyperlipidemia, COPD on home O2, CAD, CHF, Pulmonary hypertension who presented with SOB and found to have BUN/Cr of 80/ 2.7. #Acute Renal Failure in setting of CHF Cr slightly up trending, BUN stable on Lasix PO daily, pt eveolemic at the present time continue to trend BUN/Cr #Acute SOB/CHF/COPD ECHO showed decreased LVEF CT showed infiltrate vs. ateletasis continue management as per cardiology and pulmonary #DM UPCR is 2.4 likely secondary to diabetic nephropathy would benefit from EMMANUELLE/ARB once renal function stable SPEP, TANIYA pending Brandon Hampotn DO
[2016-11-20] MEDS ORDERED: PT OWN MED DRAWER 7, Y5N ONE (11:07)
[2016-11-20] MEDS: ASPIRIN COATED 81 MG TABLET.EC PO SCH (11:27)
[2016-11-20] MEDS: RANOLAZINE E.R. 500 MG TABLET (FP) PO SCH (11:27)
[2016-11-20] MEDS: predniSONE 10 MG TABLET (UD) PO SCH (11:27)
[2016-11-20] MEDS: HEPARIN NA (PORCINE) 5,000 UNITS/ML 1ML VIAL SQ SCH ×2 (11:28→21:39)
[2016-11-20] MEDS: FOLIC ACID 1 MG TABLET (FP) PO SCH (11:29)
[2016-11-20] MEDS: DOCUSATE SODIUM 100 MG CAPSULE (FP) PO SCH (11:30)
[2016-11-20] MEDS: METOPROLOL SUCCINATE 25 MG TAB.SR.24H (FP) PO SCH (11:31)
[2016-11-20] MEDS: CLOPIDOGREL BISULFATE 75 MG TABLET (FP) PO SCH (11:31)
[2016-11-20] MEDS: FUROSEMIDE 40 MG TABLET (FP) PO SCH (11:32)
[2016-11-20] MEDS: RANITIDINE HCL 150 MG TABLET (FP) PO SCH ×2 (11:32→21:40)
[2016-11-20] MEDS: DORZOLAMIDE 2% HCL OPHTHALMIC SOLUTION 10 ML BOTTLE OD SCH (11:33)
[2016-11-20] MEDS: MULTIVITAMINS (DAILY MVI) TABLET (FP) PO SCH (11:35)
[2016-11-20] MEDS ORDERED: INSULIN (NOVOLOG) ASPART 100 UNITS/ML 10ML VIAL ONE (12:31)
[2016-11-20] MEDS: LATANOPROST 0.005% OPHTH SOLN 2.5ML BOTTLE OU SCH (21:39)
[2016-11-21] MEDS: LEVOTHYROXINE NA 75 MCG TABLET (FP) PO SCH (06:17)
[2016-11-21] MEDS: INSULIN SLIDING SCALE (NOVOLOG) 1 VIAL SQ SCH ×4 (06:17→22:27)
[2016-11-21] MEDS: ALBUTEROL SO4 2.5/IPRATROPIUM 0.5 INH SOL 3 ML VIAL.NEB. NEB SCH ×4 (06:38→23:21)
[2016-11-21 07:07] LABS: CALCIUM 8.9 mg/dL (8.5-10.1); CREATININE 2.5 mg/dL (0.55-1.02); MAGNESIUM 2.3 mg/dL (1.8-2.4); PHOSPHOROUS 3.6 mg/dL (2.5-4.9)
[2016-11-21] MEDS ORDERED: PT OWN MED DRAWER 7, Y5N ONE (10:28)
[2016-11-21] MEDS: HEPARIN NA (PORCINE) 5,000 UNITS/ML 1ML VIAL SQ SCH ×2 (10:29→22:34)
[2016-11-21] MEDS: RANOLAZINE E.R. 500 MG TABLET (FP) PO SCH (10:30)
[2016-11-21] MEDS: MULTIVITAMINS (DAILY MVI) TABLET (FP) PO SCH (10:30)
[2016-11-21] MEDS: ASPIRIN COATED 81 MG TABLET.EC PO SCH (10:30)
[2016-11-21] MEDS: FOLIC ACID 1 MG TABLET (FP) PO SCH (10:30)
[2016-11-21] MEDS: CLOPIDOGREL BISULFATE 75 MG TABLET (FP) PO SCH (10:30)
[2016-11-21] MEDS: METOPROLOL SUCCINATE 25 MG TAB.SR.24H (FP) PO SCH (10:30)
[2016-11-21] MEDS: FUROSEMIDE 40 MG TABLET (FP) PO SCH (10:31)
[2016-11-21] MEDS: RANITIDINE HCL 150 MG TABLET (FP) PO SCH ×2 (10:31→22:27)
[2016-11-21] MEDS: predniSONE 10 MG TABLET (UD) PO SCH (10:31)
[2016-11-21] MEDS: DOCUSATE SODIUM 100 MG CAPSULE (FP) PO SCH (10:31)
[2016-11-21] MEDS: DORZOLAMIDE 2% HCL OPHTHALMIC SOLUTION 10 ML BOTTLE OD SCH (10:32)
--- NOTE | 2016-11-21 10:47 | PN ---
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 Admitted with progressive shortness of breath and caccompamed with wet ough and inability to expectorate, no history of chills or fevers. No history of palpitations. Mild postural lightheadedness. Complaining of fatigue and generalized weakness. Still complains of dyspnea at rest and with minimal activity. Active Medications Generic Name Dose Route Start Last Admin Trade Name Freq PRN Reason Stop Dose Admin Acetaminophen 650 mg 11/14/16 14:49 Tylenol - PO Q4H PRN FEVER OR PAIN Albuterol/Ipratropium 1 amp 11/14/16 18:00 11/21/16 06:38 Duoneb - NEB 1 amp QIDR [facility] Administration Aspirin 81 mg 11/15/16 10:00 11/21/16 10:30 Ecotrin - PO 81 mg DAILY [facility] Administration Clopidogrel Bisulfate 75 mg 11/15/16 10:00 11/21/16 10:30 Plavix - PO 75 mg DAILY [facility] Administration Diltiazem HCl 180 mg 11/15/16 10:00 11/21/16 10:30 Cardizem Cd - PO 180 mg DAILY [facility] Administration Docusate Sodium 100 mg 11/15/16 10:00 11/21/16 10:31 Colace - PO 100 mg DAILY [facility] Administration Dorzolamide HCl 1 drop 11/15/16 10:00 11/21/16 10:32 Trusopt 2% OD Not Given DAILY [facility] Folic Acid 1 mg 11/15/16 10:00 11/21/16 10:30 Folic Acid - PO 1 mg DAILY [facility] Administration Furosemide 40 mg 11/19/16 10:00 11/21/16 10:31 Lasix - PO 40 mg DAILY [facility] Administration Heparin Sodium (Porcine) 5,000 unit 11/14/16 22:00 11/21/16 10:29 Heparin - SQ 5,000 unit BID [facility] Administration Insulin Aspart 1 vial 11/14/16 16:30 11/21/16 06:17 Novolog Vial Sliding Scale - SQ Not Given ACHS [facility] Protocol Latanoprost 1 drop 11/14/16 22:00 11/20/16 21:39 Xalatan 0.005% Eye Drops - OU 1 drop HS [facility] Administration Levothyroxine Sodium 75 mcg 11/15/16 07:00 11/21/16 06:17 Synthroid - PO 75 mcg DAILY@0700 [facility] Administration Metoprolol Succinate 25 mg 11/15/16 10:00 11/21/16 10:30 Toprol Xl - PO 25 mg DAILY [facility] Administration Multivitamins/Minerals/Vitamin C 1 tab 11/20/16 10:30 11/21/16 10:30 Tab-A-Vit - PO 1 tab DAILY [facility] Administration Prednisone 30 mg 11/18/16 10:30 11/21/16 10:31 Deltasone - PO 30 mg DAILY [facility] Administration Ranitidine HCl 150 mg 11/20/16 10:30 11/21/16 10:31 Zantac - PO 150 mg BID [facility] Administration Ranolazine 500 mg 11/15/16 10:00 11/21/16 10:30 Ranexa - PO 500 mg DAILY [facility] Administration O: 81 year old female was in no acute distress, no pallor, cyanosis, clubbing, or jaundice. Last Vital Signs Temp Pulse Resp BP Pulse Ox 97.4 F L 87 22 135/72 98 11/21/16 10:00 11/21/16 10:25 11/21/16 10:00 11/21/16 10:00 11/21/16 10:25 Neck: Supple, no JVD, positive HJR, carotids were equal and upstrokes were normal, no thyromegaly appreciated. Heart: PMI was in the 5th intercostal space, left parasternal heave. No thrills , S1 and S2 were normal. Unable to appreciate murmurs or gallops. Lungs: Poor air entry at both bases. No extraneous sounds were heard. Abdomen: Soft, nontender, no hepatosplenomegaly appreciated, and no palpable masses were felt. Extremities: No calf tenderness or dependent edema. Femural pulses were 2+, DP and PT were weak. CBC, BMP 11/15/16 06:00 11/21/16 05:35 Laboratory Results - last 24 hr 11/20/16 11/20/16 11/20/16 12:21 17:20 21:34 Sodium Potassium Chloride Carbon Dioxide Anion Gap BUN Creatinine POC Glucometer 261 132 208 Random Glucose Calcium Phosphorus Magnesium 11/21/16 11/21/16 05:35 05:35 Sodium 149 H Potassium 4.3 Chloride 100 Carbon Dioxide 42 H Anion Gap 7 L BUN 74 H Creatinine 2.5 H POC Glucometer 91 Random Glucose 93 D Calcium 8.9 Phosphorus 3.6 Magnesium 2.3 Impression: (1) Advance COPD with acute exacerbation. Code(s): J44.9 - CHRONIC OBSTRUCTIVE PULMONARY DISEASE, UNSPECIFIED Qualifiers : COPD type: unspecified COPD Qualified Code(s): J44.9 - Chronic obstructive pulmonary disease, unspecified (2) Recent bronchitis (3) Cor Pulmonale (Tricuspid regurgitation/Pulomonary hypertension) secondary to #1. (4) Left ventricular systolic dysfunction (Mild to moderate by echocardiographic criteria) (5) Chronic respiratory failure with hypoxia Code(s): J96.11 - CHRONIC RESPIRATORY FAILURE WITH HYPOXIA (6) Dyspnea secondary to COPD/Cor pulmonale Code(s): R06.00 - DYSPNEA, UNSPECIFIED Qualifiers: Dyspnea type: shortness of breath Qualified Code(s): R06.02 - Shortness of breath (7) Hypercholesteremia Code(s): E78.0 - PURE HYPERCHOLESTEROLEMIA * DO NOT USE * (8) Anemia Code(s): D64.9 - ANEMIA, UNSPECIFIED Qualifiers: Anemia type: iron deficiency anemia due to chronic blood loss (9) CAD (coronary artery disease) s/p PCI/Stenting, angina pectoris Code(s): I25.10 - ATHSCL HEART DISEASE OF [place] CORONARY ARTERY W/O ANG PCTRS Qualifiers: Coronary Disease-Associated Artery/Lesion type: [place] artery [place] vs. transplanted heart: [place] heart Associated angina: without angina Qualified Code(s): I25.10 - Atherosclerotic heart disease of [place] coronary artery without angina pectoris (11) Diabetes mellitus, insulin dependent (IDDM), uncontrolled Code(s): E10.65 - TYPE 1 DIABETES MELLITUS WITH HYPERGLYCEMIA Qualifiers: Diabetes mellitus complication status: with kidney complications Diabetes mellitus complication detail: with nephropathy Qualified Code(s) : E10.29 - Type 1 diabetes mellitus with other diabetic kidney complication; E10.65 - Type 1 diabetes mellitus with hyperglycemia; R80.9 - Proteinuria, unspecified (12) HTN (hypertension) Code(s): I10 - ESSENTIAL (PRIMARY) HYPERTENSION Qualifiers: Hypertension type: essential hypertension Qualified Code(s): I10 - Essential (primary) hypertension (13) Acute on chronic kidney disease (14) Glaucoma Code(s): H40.9 - UNSPECIFIED GLAUCOMA Recommendations: 1. Continue current cardiac medications. 2. Pulmonary PT. 3. Bedside PT. 4. Cautious increase in ambulation. 5. Daily weights. Prognosis: Critical Attestation: Documentation prepared by Grabiel Zee, acting as medical radiation tech for Karlos Steve MD.
[2016-11-21] MEDS ORDERED: INSULIN (NOVOLOG) ASPART 100 UNITS/ML 10ML VIAL ONE (13:07)
--- NOTE | 2016-11-21 13:35 | PN ---
Progress Note (short form) - Note Progress Note: Renal Follow up for TACOS Pt seen and examined at the bedside continues to have cough no chest pain mild sob no N/V/D apetite is good Vital Signs Temperature 97.4 F L 11/21/16 10:00 Pulse Rate 87 11/21/16 10:25 Respiratory Rate 22 11/21/16 10:00 Blood Pressure 135/72 11/21/16 10:00 O2 Sat by Pulse Oximetry (%) 98 11/21/16 10:25 Intake & Output 11/18/16 11/19/16 11/20/16 11/21/16 23:59 23:59 23:59 23:59 Intake Total 1160 300 200 100 Output Total 300 700 Balance 860 -400 200 100 Weight 99 lb 9 oz 101 lb 3.2 oz 99 lb 14.4 oz 99 lb 4 oz Gen: NAD, awake and alert CVS: RRR, No M/R Lungs: + rales LLL. No wheeze Abd: soft NT/ND Ext: No edema in LE CBC, BMP 11/15/16 06:00 11/21/16 05:35 Laboratory Tests 11/15/16 11/17/16 11/21/16 17:00 06:00 05:35 Calcium 9.2 8.9 Phosphorus 4.1 3.6 Magnesium 2.5 H 2.3 Creatine Kinase 26 Troponin I 0.20 H U Random Total Protein 58 H Protein/Creatinin Ratio 2.36 Current Medications Acetaminophen (Tylenol -) 650 mg PO Q4H PRN PRN Reason: FEVER OR PAIN Albuterol/Ipratropium (Duoneb -) 1 amp NEB QIDR [facility] Last Admin: 11/21/16 11:41 Dose: 1 amp Aspirin (Ecotrin -) 81 mg PO DAILY [facility] Last Admin: 11/21/16 10:30 Dose: 81 mg Clopidogrel Bisulfate (Plavix -) 75 mg PO DAILY [facility] Last Admin: 11/21/16 10:30 Dose: 75 mg Diltiazem HCl (Cardizem Cd -) 180 mg PO DAILY [facility] Last Admin: 11/21/16 10:30 Dose: 180 mg Docusate Sodium (Colace -) 100 mg PO DAILY [facility] Last Admin: 11/21/16 10:31 Dose: 100 mg Dorzolamide HCl (Trusopt 2%) 1 drop OD DAILY [facility] Last Admin: 11/21/16 10:32 Dose: Not Given Folic Acid (Folic Acid -) 1 mg PO DAILY [facility] Last Admin: 11/21/16 10:30 Dose: 1 mg Furosemide (Lasix -) 40 mg PO DAILY [facility] Last Admin: 11/21/16 10:31 Dose: 40 mg Heparin Sodium (Porcine) (Heparin -) 5,000 unit SQ BID [facility] Last Admin: 11/21/16 10:29 Dose: 5,000 unit Insulin Aspart (Novolog Vial Sliding Scale -) 1 vial SQ ACHS [facility] PRN Reason: Protocol Last Admin: 11/21/16 13:18 Dose: 2 unit Latanoprost (Xalatan 0.005% Eye Drops -) 1 drop OU HS [facility] Last Admin: 11/20/16 21:39 Dose: 1 drop Levothyroxine Sodium (Synthroid -) 75 mcg PO DAILY@0700 [facility] Last Admin: 11/21/16 06:17 Dose: 75 mcg Metoprolol Succinate (Toprol Xl -) 25 mg PO DAILY [facility] Last Admin: 11/21/16 10:30 Dose: 25 mg Multivitamins/Minerals/Vitamin C (Tab-A-Vit -) 1 tab PO DAILY [facility] Last Admin: 11/21/16 10:30 Dose: 1 tab Prednisone (Deltasone -) 30 mg PO DAILY [facility] Last Admin: 11/21/16 10:31 Dose: 30 mg Ranitidine HCl (Zantac -) 150 mg PO BID [facility] Last Admin: 11/21/16 10:31 Dose: 150 mg Ranolazine (Ranexa -) 500 mg PO DAILY [facility] Last Admin: 11/21/16 10:30 Dose: 500 mg A/P 81 year old woman with PMhx of DM, Hyperlipidemia, COPD on home O2, CAD, CHF, Pulmonary hypertension who presented with SOB and found to have BUN/Cr of 80/ 2.7. #Acute Renal Failure in setting of CHF Renal function stable (cr 2.5) Baseline Cr was 1.6 (September 2016) Renal US w/o obstruction but consistent with CKD Urine studies showed subnephrotic proteinruia TANIYA, SPEP pending CXR showed b/l infiltrate so will check ANCA's ON oral lasix at this time, appears evolemic trend BUN/cr pending serologic studies may consider biopsy (inpatient vs. outpatient) if renal function does now improve toward baseline Repeat UA and urine culture #Acute SOB/CHF/COPD ECHO showed decreased LVEF CT showed infiltrate vs. 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
--- NOTE | 2016-11-21 14:20 | PN ---
Progress Note, Physician History of Present Illness: pulmonary alert,still dyspneic at rest, +cough,-sputum - Current Medication List Current Medications: Active Medications Acetaminophen (Tylenol -) 650 mg PO Q4H PRN PRN Reason: FEVER OR PAIN Albuterol/Ipratropium (Duoneb -) 1 amp NEB QIDR [facility] Last Admin: 11/21/16 11:41 Dose: 1 amp Aspirin (Ecotrin -) 81 mg PO DAILY [facility] Last Admin: 11/21/16 10:30 Dose: 81 mg Clopidogrel Bisulfate (Plavix -) 75 mg PO DAILY [facility] Last Admin: 11/21/16 10:30 Dose: 75 mg Diltiazem HCl (Cardizem Cd -) 180 mg PO DAILY [facility] Last Admin: 11/21/16 10:30 Dose: 180 mg Docusate Sodium (Colace -) 100 mg PO DAILY [facility] Last Admin: 11/21/16 10:31 Dose: 100 mg Dorzolamide HCl (Trusopt 2%) 1 drop OD DAILY [facility] Last Admin: 11/21/16 10:32 Dose: Not Given Folic Acid (Folic Acid -) 1 mg PO DAILY [facility] Last Admin: 11/21/16 10:30 Dose: 1 mg Furosemide (Lasix -) 40 mg PO DAILY [facility] Last Admin: 11/21/16 10:31 Dose: 40 mg Heparin Sodium (Porcine) (Heparin -) 5,000 unit SQ BID [facility] Last Admin: 11/21/16 10:29 Dose: 5,000 unit Insulin Aspart (Novolog Vial Sliding Scale -) 1 vial SQ ACHS [facility] PRN Reason: Protocol Last Admin: 11/21/16 13:18 Dose: 2 unit Latanoprost (Xalatan 0.005% Eye Drops -) 1 drop OU HS [facility] Last Admin: 11/20/16 21:39 Dose: 1 drop Levothyroxine Sodium (Synthroid -) 75 mcg PO DAILY@0700 [facility] Last Admin: 11/21/16 06:17 Dose: 75 mcg Metoprolol Succinate (Toprol Xl -) 25 mg PO DAILY [facility] Last Admin: 11/21/16 10:30 Dose: 25 mg Multivitamins/Minerals/Vitamin C (Tab-A-Vit -) 1 tab PO DAILY [facility] Last Admin: 11/21/16 10:30 Dose: 1 tab Prednisone (Deltasone -) 30 mg PO DAILY [facility] Last Admin: 11/21/16 10:31 Dose: 30 mg Ranitidine HCl (Zantac -) 150 mg PO BID [facility] Last Admin: 11/21/16 10:31 Dose: 150 mg Ranolazine (Ranexa -) 500 mg PO DAILY [facility] Last Admin: 11/21/16 10:30 Dose: 500 mg - Objective Vital Signs: Vital Signs Temperature 97.4 F L 11/21/16 10:00 Pulse Rate 87 11/21/16 10:25 Respiratory Rate 22 11/21/16 10:00 Blood Pressure 135/72 11/21/16 10:00 O2 Sat by Pulse Oximetry (%) 98 11/21/16 10:25 Constitutional: Yes: Thin, Other (mildly dyspneic) Eyes: Yes: WNL HENT: Yes: WNL Neck: Yes: WNL Cardiovascular: Yes: Regular Rate and Rhythm, S1, S2 Respiratory: Yes: Diminished, Wheezes (few scattered wheezes) Gastrointestinal: Yes: Normal Bowel Sounds, Soft Extremities: Yes: WNL Edema: No Labs: CBC, BMP 11/15/16 06:00 11/21/16 05:35 INR, PTT INR 0.99 (0.82-1.09) 11/14/16 12:40 Assessment/Plan Problem List - Problems (1) Acute kidney injury Code(s): N17.9 - ACUTE KIDNEY FAILURE, UNSPECIFIED (2) Acute on chronic diastolic (congestive) heart failure Code(s): I50.33 - ACUTE ON CHRONIC DIASTOLIC (CONGESTIVE) HEART FAILURE (3) COPD (chronic obstructive pulmonary disease) Code(s): J44.9 - CHRONIC OBSTRUCTIVE PULMONARY DISEASE, UNSPECIFIED Qualifiers : COPD type: unspecified COPD Qualified Code(s): J44.9 - Chronic obstructive pulmonary disease, unspecified (4) Chronic respiratory failure with hypoxia Code(s): J96.11 - CHRONIC RESPIRATORY FAILURE WITH HYPOXIA (5) Dyspnea Code(s): R06.00 - DYSPNEA, UNSPECIFIED Qualifiers: Dyspnea type: shortness of breath Qualified Code(s): R06.02 - Shortness of breath (6) Hypercholesteremia Code(s): E78.0 - PURE HYPERCHOLESTEROLEMIA * DO NOT USE * (7) Pulmonary hypertension Code(s): I27.2 - OTHER SECONDARY PULMONARY HYPERTENSION (8) Anemia Code(s): D64.9 - ANEMIA, UNSPECIFIED Qualifiers: Anemia type: iron deficiency anemia due to chronic blood loss (9) CAD (coronary artery disease) Code(s): I25.10 - ATHSCL HEART DISEASE OF [place] CORONARY ARTERY W/O ANG PCTRS Qualifiers: Coronary Disease-Associated Artery/Lesion type: [place] artery [place] vs. transplanted heart: [place] heart Associated angina: without angina Qualified Code(s): I25.10 - Atherosclerotic heart disease of [place] coronary artery without angina pectoris (10) COPD exacerbation Code(s): J44.1 - CHRONIC OBSTRUCTIVE PULMONARY DISEASE W (ACUTE) EXACERBATION (11) Diabetes mellitus, insulin dependent (IDDM), uncontrolled Code(s): E10.65 - TYPE 1 DIABETES MELLITUS WITH HYPERGLYCEMIA Qualifiers: Diabetes mellitus complication status: with kidney complications Diabetes mellitus complication detail: with nephropathy Qualified Code(s) : E10.29 - Type 1 diabetes mellitus with other diabetic kidney complication; E10.65 - Type 1 diabetes mellitus with hyperglycemia; R80.9 - Proteinuria, unspecified (12) HTN (hypertension) Code(s): I10 - ESSENTIAL (PRIMARY) HYPERTENSION Qualifiers: Hypertension type: essential hypertension Qualified Code(s): I10 - Essential (primary) hypertension (13) Demand ischemia Code(s): I24.8 - OTHER FORMS OF ACUTE ISCHEMIC HEART DISEASE Assessment/Plan O2 dependent COPD Acute on Chronic Hypoxic and Hypercapneic Respiratory Failure Acute on CKD Hypothyroidism cont Prednisone to BID O2 at 3 L NC PT evaluation BD TX Daliresp Zantac BID DR ZAFAR
[2016-11-21] MEDS: predniSONE 20 MG TABLET (UD) PO SCH (22:27)
[2016-11-21] MEDS: LATANOPROST 0.005% OPHTH SOLN 2.5ML BOTTLE OU SCH (22:29)
[2016-11-22 00:07] LABS: A/G RATIO 0.8 (0.7-1.7); ALBUMIN 2.7 g/dL (2.9-4.4); GLOBULIN, TOTAL 3.2 g/dL (2.2-3.9); M-SPIKE Not Observed g/dL (Not Observed); TOTAL PROTEIN 5.9 g/dL (6.0-8.5)
[2016-11-22] MEDS: ALBUTEROL SO4 2.5/IPRATROPIUM 0.5 INH SOL 3 ML VIAL.NEB. NEB SCH ×2 (06:07→11:02)
[2016-11-22] MEDS: INSULIN SLIDING SCALE (NOVOLOG) 1 VIAL SQ SCH (06:30)
[2016-11-22] MEDS ORDERED: INSULIN (NOVOLOG) ASPART 100 UNITS/ML 10ML VIAL ONE ×2 (06:33→12:45)
[2016-11-22] MEDS: LEVOTHYROXINE NA 75 MCG TABLET (FP) PO SCH (06:33)
[2016-11-22 07:33] LABS: MAGNESIUM 2.5 mg/dL (1.8-2.4)
[2016-11-22 07:35] LABS: CREATININE 2.7 mg/dL (0.55-1.02); PHOSPHOROUS 3.9 mg/dL (2.5-4.9)
[2016-11-22 09:21] LABS: URINE APPEARANCE SLCLOUDY; URINE BILIRUBIN NEGATIVE (NEGATIVE); URINE BLOOD NEGATIVE (NEGATIVE); URINE COLOR YELLOW; URINE GLUCOSE (UA) 2+ (NEGATIVE); URINE KETONE NEGATIVE (NEGATIVE); URINE NITRITE NEGATIVE (NEGATIVE); URINE UROBILINOGEN NEGATIVE E.U./dl (0.2-1.0)
[2016-11-22 09:23] LABS: URINE LEUK ESTERASE TRACE (NEGATIVE); URINE PROTEIN 1+ (NEGATIVE)
[2016-11-22 09:25] LABS: URINE BACTERIA MANY /hpf (NONE SEEN); URINE HYALINE CAST 5 /lpf; URINE MUCUS RARE; URINE RBC <1 /hpf (0-3); URINE WBC 5 /hpf (3-5)
[2016-11-22 09:26] VITALS: BP 160/74; TEMP 97.9
[2016-11-22 09:51] LABS: URINE CREATININE 45.7 mg/dL
--- NOTE | 2016-11-22 09:58 | PN ---
Progress Note (short form) - Note Progress Note: Breathing still does not feel at baseline. Feels generalized weakness and fatigue. PT report yesterday noted. Ambulated 90 ft with a walker. Intake & Output 11/19/16 11/20/16 11/21/16 11/22/16 23:59 23:59 23:59 23:59 Intake Total 300 200 100 Output Total 700 Balance -400 200 100 Weight 101 lb 3.2 oz 99 lb 14.4 oz 99 lb 4 oz 98 lb 11.2 oz Last Vital Signs Temp Pulse Resp BP Pulse Ox 97.9 F 77 22 160/74 100 11/22/16 09:24 11/22/16 09:24 11/22/16 09:24 11/22/16 09:24 11/22/16 09:00 Active Medications Acetaminophen (Tylenol -) 650 mg PO Q4H PRN PRN Reason: FEVER OR PAIN Albuterol/Ipratropium (Duoneb -) 1 amp NEB QIDR [facility] Last Admin: 11/22/16 06:07 Dose: 1 amp Aspirin (Ecotrin -) 81 mg PO DAILY [facility] Last Admin: 11/21/16 10:30 Dose: 81 mg Clopidogrel Bisulfate (Plavix -) 75 mg PO DAILY [facility] Last Admin: 11/21/16 10:30 Dose: 75 mg Diltiazem HCl (Cardizem Cd -) 180 mg PO DAILY [facility] Last Admin: 11/21/16 10:30 Dose: 180 mg Docusate Sodium (Colace -) 100 mg PO DAILY [facility] Last Admin: 11/21/16 10:31 Dose: 100 mg Dorzolamide HCl (Trusopt 2%) 1 drop OD DAILY [facility] Last Admin: 11/21/16 10:32 Dose: Not Given Folic Acid (Folic Acid -) 1 mg PO DAILY [facility] Last Admin: 11/21/16 10:30 Dose: 1 mg Furosemide (Lasix -) 40 mg PO DAILY [facility] Last Admin: 11/21/16 10:31 Dose: 40 mg Insulin Aspart (Novolog Vial Sliding Scale -) 1 vial SQ ACHS [facility] PRN Reason: Protocol Last Admin: 11/22/16 06:30 Dose: Not Given Latanoprost (Xalatan 0.005% Eye Drops -) 1 drop OU HS [facility] Last Admin: 11/21/16 22:29 Dose: 1 drop Levothyroxine Sodium (Synthroid -) 75 mcg PO DAILY@0700 [facility] Last Admin: 11/22/16 06:33 Dose: 75 mcg Metoprolol Succinate (Toprol Xl -) 25 mg PO DAILY [facility] Last Admin: 11/21/16 10:30 Dose: 25 mg Multivitamins/Minerals/Vitamin C (Tab-A-Vit -) 1 tab PO DAILY [facility] Last Admin: 11/21/16 10:30 Dose: 1 tab Prednisone (Deltasone -) 30 mg PO BID [facility] Last Admin: 11/21/16 22:27 Dose: 30 mg Ranitidine HCl (Zantac -) 150 mg PO BID [facility] Last Admin: 11/21/16 22:27 Dose: 150 mg Ranolazine (Ranexa -) 500 mg PO DAILY [facility] Last Admin: 11/21/16 10:30 Dose: 500 mg Constitutional: Yes: Mildly tachypneic at rest, thin Neck: Yes: Supple Cardiovascular: Yes: Regular Rate and Rhythm Respiratory: Yes: Regular, Diminished, On Nasal O2 Gastrointestinal: Yes: Normal Bowel Sounds, Soft Edema: No Labs: Laboratory Results - last 24 hr 11/20/16 11/21/16 11/21/16 06:00 11:55 22:21 Sodium Potassium Chloride Carbon Dioxide Anion Gap BUN Creatinine POC Glucometer 168 351 Random Glucose Calcium Phosphorus Magnesium Prot Electrophoresis Serum Total Protein 5.9 L Albumin 2.7 L Globulin 3.2 Albumin/Globulin Ratio 0.8 Jegnp-0-Dxmkzlzuo 0.2 Xrkci-2-Qafbiypqf (%) Cancelled Uzctt-8-Xmtekopyb 0.8 Sdqfg-6-Lvmstqmkl (%) Cancelled Beta Globulins 0.9 Beta Globulins (%) Cancelled Gamma Globulins 1.3 Gamma Globulins (%) Cancelled M-Manny % Cancelled Urine Color Urine Appearance Urine pH Ur Specific [place] Urine Protein Urine Glucose (UA) Urine Ketones Urine Blood Urine Nitrite Urine Bilirubin Urine Urobilinogen Ur Leukocyte Esterase Urine RBC Urine WBC Ur Epithelial Cells Urine Bacteria Hyaline Casts Urine Mucus U Random Total Protein Urine Creatinine ARLETH M-Manny Not observed TANIYA Screen Negative Ref Test Comments Cancelled 11/22/16 11/22/16 11/22/16 06:00 06:15 06:15 Sodium 144 Potassium 4.5 Chloride 98 Carbon Dioxide 40 H Anion Gap 6 L BUN 77 H Creatinine 2.7 H POC Glucometer Random Glucose 122 H D Calcium 9.0 Phosphorus 3.9 Magnesium 2.5 H Prot Electrophoresis Serum Total Protein Albumin Globulin Albumin/Globulin Ratio Lsdni-6-Tnbnzngbk Kngom-3-Pqeghmfro (%) Zrusy-8-Qdrokjfyu Pgyjj-6-Tdntcxrbo (%) Beta Globulins Beta Globulins (%) Gamma Globulins Gamma Globulins (%) M-Manny % Urine Color Yellow Urine Appearance Slcloudy Urine pH 5.0 Ur Specific [place] 1.013 Urine Protein 1+ H Urine Glucose (UA) 2+ H Urine Ketones Negative Urine Blood Negative Urine Nitrite Negative Urine Bilirubin Negative Urine Urobilinogen Negative Ur Leukocyte Esterase Trace H D Urine RBC <1 Urine WBC 5 Ur Epithelial Cells Rare Urine Bacteria Many Hyaline Casts 5 Urine Mucus Rare U Random Total Protein 65 H Urine Creatinine 45.7 ARLETH M-Manny TANIYA Screen Ref Test Comments Problem List - Problems (1) Acute kidney injury Code(s): N17.9 - ACUTE KIDNEY FAILURE, UNSPECIFIED (2) Acute on chronic diastolic (congestive) heart failure Code(s): I50.33 - ACUTE ON CHRONIC DIASTOLIC (CONGESTIVE) HEART FAILURE (3) COPD (chronic obstructive pulmonary disease) Code(s): J44.9 - CHRONIC OBSTRUCTIVE PULMONARY DISEASE, UNSPECIFIED Qualifiers : COPD type: unspecified COPD Qualified Code(s): J44.9 - Chronic obstructive pulmonary disease, unspecified (4) Chronic respiratory failure with hypoxia Code(s): J96.11 - CHRONIC RESPIRATORY FAILURE WITH HYPOXIA (5) Dyspnea Code(s): R06.00 - DYSPNEA, UNSPECIFIED Qualifiers: Dyspnea type: shortness of breath Qualified Code(s): R06.02 - Shortness of breath (6) Hypercholesteremia Code(s): E78.0 - PURE HYPERCHOLESTEROLEMIA * DO NOT USE * (7) Pulmonary hypertension Code(s): I27.2 - OTHER SECONDARY PULMONARY HYPERTENSION (8) Anemia Code(s): D64.9 - ANEMIA, UNSPECIFIED Qualifiers: Anemia type: iron deficiency anemia due to chronic blood loss (9) CAD (coronary artery disease) Code(s): I25.10 - ATHSCL HEART DISEASE OF [place] CORONARY ARTERY W/O ANG PCTRS Qualifiers: Coronary Disease-Associated Artery/Lesion type: [place] artery [place] vs. transplanted heart: [place] heart Associated angina: without angina Qualified Code(s): I25.10 - Atherosclerotic heart disease of [place] coronary artery without angina pectoris (10) COPD exacerbation Code(s): J44.1 - CHRONIC OBSTRUCTIVE PULMONARY DISEASE W (ACUTE) EXACERBATION (11) Diabetes mellitus, insulin dependent (IDDM), uncontrolled Code(s): E10.65 - TYPE 1 DIABETES MELLITUS WITH HYPERGLYCEMIA Qualifiers: Diabetes mellitus complication status: with kidney complications Diabetes mellitus complication detail: with nephropathy Qualified Code(s) : E10.29 - Type 1 diabetes mellitus with other diabetic kidney complication; E10.65 - Type 1 diabetes mellitus with hyperglycemia; R80.9 - Proteinuria, unspecified (12) HTN (hypertension) Code(s): I10 - ESSENTIAL (PRIMARY) HYPERTENSION Qualifiers: Hypertension type: essential hypertension Qualified Code(s): I10 - Essential (primary) hypertension (13) Demand ischemia Code(s): I24.8 - OTHER FORMS OF ACUTE ISCHEMIC HEART DISEASE Assessment/Plan O2 dependent COPD Acute on Chronic Hypoxic and Hypercapneic Respiratory Failure Acute on CKD Hypothyroidism Noted Prednisone increased BID O2 at 3 L NC PT BD TX Daliresp Zantac BID Add MVI Will benefit from short term rehab / Pulmonary rehab Dr Mary
--- NOTE | 2016-11-22 10:19 | DS ---
Physical Examination Vital Signs: Vital Signs Temperature 97.9 F 11/22/16 09:24 Pulse Rate 77 11/22/16 09:24 Respiratory Rate 22 11/22/16 09:24 Blood Pressure 160/74 11/22/16 09:24 O2 Sat by Pulse Oximetry (%) 100 11/22/16 09:00 Findings/Remarks: 81 F, Severe COPD, HTN, DM, hypercholesterolemia, severe pulmonary HTN, CAD, CHF , chronic hypoxic respiratory failure on home O2. Admitted due to AE of COPD and acute on CKD. Clinically improved but remains significantly deconditioned. Requires short term rehab/pulmonary rehab. Constitutional: Yes: No Distress Eyes: Yes: Conjunctiva Clear, EOM Intact HENT: Yes: Atraumatic, Normocephalic Neck: Yes: Supple, Trachea Midline Respiratory: Yes: Cough, Diminished, On Nasal O2, Poor Air Entry, Rhonchi. No: Accessory Muscle Use, Stridor, Wheezes Gastrointestinal: Yes: Normal Bowel Sounds, Soft Musculoskeletal: Yes: WNL Extremities: Yes: WNL Edema: No Peripheral Pulses WNL: Yes Integumentary: Yes: WNL Neurological: Yes: Alert, Oriented ...Motor Strength: WNL Psychiatric: Yes: Alert, Oriented Labs: CBC, BMP 11/15/16 06:00 11/22/16 06:00 Discharge Summary Reason For Visit: COPD,DYSPNEA,ACUTE RENAL INSUFFICIENCY Current Active Problems Acute kidney injury (Acute) Acute on chronic diastolic (congestive) heart failure (Acute) Acute renal insufficiency (Acute) COPD (chronic obstructive pulmonary disease) (Acute) Chronic respiratory failure with hypercapnia (Acute) Chronic respiratory failure with hypoxia (Acute) Cor pulmonale (Acute) Demand ischemia (Acute) Dyspnea (Acute) Glaucoma (Acute) Hypercholesteremia (Acute) Pulmonary hypertension (Acute) Condition: Fair - Instructions Referrals: Raymond Perez MD [Primary Care Provider] - Disposition: [facility] - Home Medications Comprehensive Discharge Medication List: Ambulatory Orders Acetaminophen [Tylenol .Regular Strength -] 650 mg PO Q4H PRN #0 tablet Albuterol 2.5/Ipratropium 0.5 [Duoneb -] 1 amp NEB QIDR amp 11/22/16 Aspirin Coated [Ecotrin -] 81 mg PO DAILY tablet.ec 11/22/16 Clopidogrel Bisulfate [Plavix -] 75 mg PO DAILY tablet 11/22/16 Diltiazem Cd [Cardizem Cd -] 180 mg PO DAILY cap.cd.24h 11/22/16 Docusate Sodium [Colace -] 100 mg PO DAILY capsule 11/22/16 Dorzolamide HCl [Trusopt 2% -] 1 drop OD DAILY drops 11/22/16 Folic Acid - 1 mg PO DAILY tablet 11/22/16 Furosemide [Lasix -] 40 mg PO DAILY tablet 11/22/16 Insulin Sliding Scale [Novolog Vial Sliding Scale -] 1 vial SQ ACHS units 11/22 Latanoprost 0.005% Eye Drops [Xalatan 0.005% Eye Drops -] 1 drop OU HS drops Levothyroxine [Synthroid -] 75 mcg PO DAILY@0700 tablet 11/22/16 Metoprolol Succinate [Toprol XL -] 25 mg PO DAILY tab.sr.24h 11/22/16 Multivitamins [Multivit ([facility] Formulary)] 1 tab PO DAILY tab 11/22/16 Prednisone [Deltasone -] 30 mg PO BID tablet 11/22/16 Ranitidine [Zantac -] 150 mg PO BID tablet 11/22/16 Ranolazine [Ranexa -] 500 mg PO DAILY tab 11/22/16
[2016-11-22 10:30] VITALS: PULSE 82
[2016-11-22] MEDS: FOLIC ACID 1 MG TABLET (FP) PO SCH (12:23)
[2016-11-22] MEDS: ASPIRIN COATED 81 MG TABLET.EC PO SCH (12:23)
[2016-11-22] MEDS: METOPROLOL SUCCINATE 25 MG TAB.SR.24H (FP) PO SCH (12:24)
[2016-11-22] MEDS: FUROSEMIDE 40 MG TABLET (FP) PO SCH (12:24)
[2016-11-22] MEDS: CLOPIDOGREL BISULFATE 75 MG TABLET (FP) PO SCH (12:24)
[2016-11-22] MEDS: RANITIDINE HCL 150 MG TABLET (FP) PO SCH (12:24)
[2016-11-22] MEDS: MULTIVITAMINS (DAILY MVI) TABLET (FP) PO SCH (12:25)
[2016-11-22] MEDS: RANOLAZINE E.R. 500 MG TABLET (FP) PO SCH (12:25)
[2016-11-22] MEDS: predniSONE 20 MG TABLET (UD) PO SCH (12:34)
[2016-11-22] MEDS: DOCUSATE SODIUM 100 MG CAPSULE (FP) PO SCH (12:40)
--- NOTE | 2016-11-22 13:10 | PN ---
Progress Note, Physician Chief Complaint: Not in distress History of Present Illness: Patient was seen and examined. Awake and alert. Chart was reviewed Denies chest pain or palpitations Cough - Current Medication List Current Medications: Active Medications Acetaminophen (Tylenol -) 650 mg PO Q4H PRN PRN Reason: FEVER OR PAIN Albuterol/Ipratropium (Duoneb -) 1 amp NEB QIDR [facility] Last Admin: 11/22/16 11:02 Dose: 1 amp Aspirin (Ecotrin -) 81 mg PO DAILY [facility] Last Admin: 11/22/16 12:23 Dose: 81 mg Clopidogrel Bisulfate (Plavix -) 75 mg PO DAILY [facility] Last Admin: 11/22/16 12:24 Dose: 75 mg Diltiazem HCl (Cardizem Cd -) 180 mg PO DAILY [facility] Last Admin: 11/22/16 12:23 Dose: 180 mg Docusate Sodium (Colace -) 100 mg PO DAILY [facility] Last Admin: 11/22/16 12:40 Dose: Not Given Dorzolamide HCl (Trusopt 2%) 1 drop OD DAILY [facility] Last Admin: 11/21/16 10:32 Dose: Not Given Folic Acid (Folic Acid -) 1 mg PO DAILY [facility] Last Admin: 11/22/16 12:23 Dose: 1 mg Furosemide (Lasix -) 40 mg PO DAILY [facility] Last Admin: 11/22/16 12:24 Dose: 40 mg Insulin Aspart (Novolog Vial Sliding Scale -) 1 vial SQ ACHS [facility] PRN Reason: Protocol Last Admin: 11/22/16 06:30 Dose: Not Given Latanoprost (Xalatan 0.005% Eye Drops -) 1 drop OU HS [facility] Last Admin: 11/21/16 22:29 Dose: 1 drop Levothyroxine Sodium (Synthroid -) 75 mcg PO DAILY@0700 [facility] Last Admin: 11/22/16 06:33 Dose: 75 mcg Metoprolol Succinate (Toprol Xl -) 25 mg PO DAILY [facility] Last Admin: 11/22/16 12:24 Dose: 25 mg Multivitamins/Minerals/Vitamin C (Tab-A-Vit -) 1 tab PO DAILY [facility] Last Admin: 11/22/16 12:25 Dose: 1 tab Prednisone (Deltasone -) 30 mg PO BID [facility] Last Admin: 11/22/16 12:34 Dose: 30 mg Ranitidine HCl (Zantac -) 150 mg PO BID [facility] Last Admin: 11/22/16 12:24 Dose: 150 mg Ranolazine (Ranexa -) 500 mg PO DAILY [facility] Last Admin: 11/22/16 12:25 Dose: 500 mg - Objective Vital Signs: Vital Signs Temperature 97.9 F 11/22/16 09:24 Pulse Rate 82 11/22/16 10:29 Respiratory Rate 22 11/22/16 09:24 Blood Pressure 160/74 11/22/16 09:24 O2 Sat by Pulse Oximetry (%) 98 11/22/16 10:29 Neck: Yes: Supple Cardiovascular: Yes: Regular Rate and Rhythm, S1, S2 Respiratory: Yes: Cough, Diminished Gastrointestinal: Yes: Normal Bowel Sounds, Soft. No: Tenderness Edema: No Labs: Laboratory Results - last 24 hr 11/21/16 11/22/16 11/22/16 22:21 06:00 06:15 Sodium 144 Potassium 4.5 Chloride 98 Carbon Dioxide 40 H Anion Gap 6 L BUN 77 H Creatinine 2.7 H POC Glucometer 351 Random Glucose 122 H D Calcium 9.0 Phosphorus 3.9 Magnesium 2.5 H Prot Electrophoresis Serum Total Protein Albumin Globulin Albumin/Globulin Ratio Mgger-0-Lggkkfabl Cpjel-3-Bwnkhuygx (%) Nxyyf-4-Nasibsqdb Hlblj-3-Gdpdzoduq (%) Beta Globulins Beta Globulins (%) Gamma Globulins Gamma Globulins (%) M-Manny % Urine Color Yellow Urine Appearance Slcloudy Urine pH 5.0 Ur Specific [place] 1.013 Urine Protein 1+ H Urine Glucose (UA) 2+ H Urine Ketones Negative Urine Blood Negative Urine Nitrite Negative Urine Bilirubin Negative Urine Urobilinogen Negative Ur Leukocyte Esterase Trace H D Urine RBC <1 Urine WBC 5 Ur Epithelial Cells Rare Urine Bacteria Many Hyaline Casts 5 Urine Mucus Rare U Random Total Protein Urine Creatinine [place]LE[place] M-Manny TANIYA Screen Ref Test Comments Problem List - Problems (1) Acute on chronic diastolic (congestive) heart failure Code(s): I50.33 - ACUTE ON CHRONIC DIASTOLIC (CONGESTIVE) HEART FAILURE (2) COPD (chronic obstructive pulmonary disease) Code(s): J44.9 - CHRONIC OBSTRUCTIVE PULMONARY DISEASE, UNSPECIFIED Qualifiers : COPD type: unspecified COPD Qualified Code(s): J44.9 - Chronic obstructive pulmonary disease, unspecified (3) Chronic respiratory failure with hypercapnia Code(s): J96.12 - CHRONIC RESPIRATORY FAILURE WITH HYPERCAPNIA (4) Chronic respiratory failure with hypoxia Code(s): J96.11 - CHRONIC RESPIRATORY FAILURE WITH HYPOXIA (5) Cor pulmonale Code(s): I27.81 - COR PULMONALE (CHRONIC) (6) Hypercholesteremia Code(s): E78.0 - PURE HYPERCHOLESTEROLEMIA * DO NOT USE * (7) Pulmonary hypertension Code(s): I27.2 - OTHER SECONDARY PULMONARY HYPERTENSION (8) Anemia Code(s): D64.9 - ANEMIA, UNSPECIFIED Qualifiers: Anemia type: iron deficiency anemia due to chronic blood loss (9) CAD (coronary artery disease) Code(s): I25.10 - ATHSCL HEART DISEASE OF [place] CORONARY ARTERY W/O ANG PCTRS Qualifiers: Coronary Disease-Associated Artery/Lesion type: [place] artery [place] vs. transplanted heart: [place] heart Associated angina: without angina Qualified Code(s): I25.10 - Atherosclerotic heart disease of [place] coronary artery without angina pectoris (10) Diabetes mellitus, insulin dependent (IDDM), uncontrolled Code(s): E10.65 - TYPE 1 DIABETES MELLITUS WITH HYPERGLYCEMIA Qualifiers: Diabetes mellitus complication status: with kidney complications Diabetes mellitus complication detail: with nephropathy Qualified Code(s) : E10.29 - Type 1 diabetes mellitus with other diabetic kidney complication; E10.65 - Type 1 diabetes mellitus with hyperglycemia; R80.9 - Proteinuria, unspecified (11) HTN (hypertension) Code(s): I10 - ESSENTIAL (PRIMARY) HYPERTENSION Qualifiers: Hypertension type: essential hypertension Qualified Code(s): I10 - Essential (primary) hypertension Assessment/Plan 1. Acute on chronic LV diastolic heart failure with severe pulmonary HTN improving 2. Home-O2 dependent COPD - exacerbation 3. Chronic hypoxic and hypercapneic respiratory failure 4. CAD s/p multivessel PCI (stent), demand ischemia 5. Acute on CKD 6. HTN/HCVD 7. DM 8. Hypercholesterolemia 9. Hypothyroidism PLAN: 1. Continue Lasix 40 po qd 2. Continue ASA 81 qd, Plavix 75 qd, Cardizem CD 180 qd, Toprol XL 25 qd, Ranexa 500 qd. 3. DVT and GI prophylaxis 4. Discharge planning to pulmonry rehab Félix Bruno MD
[2016-11-27 00:10] LABS: C-ANCA <1:20 titer (Neg:<1:20); MYELOPEROXIDASE ANTIBODY <9.0 U/mL (0.0-9.0); P-ANCA <1:20 titer (Neg:<1:20); PROTEINASE-3 ANTIBODY <3.5 U/mL (0.0-3.5)
== END 2016-11-22 14:16 | DRG 291 ==
LOC: JER 11:39 → JERBED 14:08 → J7W 15:03
PROVIDERS: ADMIT Specialist; ATTEND Specialist
DX: I13.0 Hypertensive heart and chronic kidney disease with heart failure and stage 1 through stage 4 chronic kidney disease, or unspecified chronic kidney disease (principal); I50.33 Acute on chronic diastolic (congestive) heart failure; J96.21 Acute and chronic respiratory failure with hypoxia; J96.22 Acute and chronic respiratory failure with hypercapnia; N17.9 Acute kidney failure, unspecified; J44.1 Chronic obstructive pulmonary disease with (acute) exacerbation; I27.2 Other secondary pulmonary hypertension; I25.10 Atherosclerotic heart disease of native coronary artery without angina pectoris; E10.65 Type 1 diabetes mellitus with hyperglycemia; N18.9 Chronic kidney disease, unspecified; E03.9 Hypothyroidism, unspecified; Z98.61 Coronary angioplasty status; H40.9 Unspecified glaucoma; D64.9 Anemia, unspecified; E78.5 Hyperlipidemia, unspecified; E10.21 Type 1 diabetes mellitus with diabetic nephropathy; Z79.4 Long term (current) use of insulin
CPT/HCPCS: 36415; 36600; 71010-TC; 71250-TC; 76775-TC; 76856-TC; 80048; 80053; 81003; 81015; 82436; 82550; 82570; 82803; 83036; 83520; 83605; 83735; 83880; 84100; 84133; 84155; 84156; 84165; 84300; 84443; 84484; 84540; 85025; 85610; 86038; 86256; 87040; 87086; 87186; 87254; 87804; 93005; 93010; 93306-TC; 94640; 97116-GP; 97162-PG; 99284-25; J1644